=== PATIENT | female | born 1935 | race Caucasian/White ===

== ENCOUNTER → 2016-06-26 | Outpatient (CLI) | payer OTHER, MEDICARE ==
--- NOTE | 2016-06-27 13:03 | MAMMOGRAPHY REPORT ---
BILATERAL DIGITAL SCREENING MAMMOGRAM WITH CAD: 06/26/2016 CLINICAL HISTORY: Routine screening. Patient has no complaints. TECHNIQUE: Bilateral CC, MLO and left XCCL views were obtained. Current study was also evaluated wi th a Computer Aided Detection (CAD) system. COMPARISON: Comparison is made to exams dated: 06/21/2015 mammogram, 05/22/2014 mammogram, 07/09/2014 u ltrasound, 05/21/2013 mammogram, 05/20/2012 mammogram, and 05/15/2011 mammogram - [facility]. BREAST COMPOSITION: The tissue of both breasts is heterogeneously dense, which may obscure small ma sses. FINDINGS: There is a faint grouping of microcalcifications in the anterior subareolar left breast t hat is unchanged dating back to at least 06-08-2008, therefore likely benign. No suspicious mass, arc hitectural distortion or cluster of new, suspicious microcalcifications is seen. IMPRESSION: ACR BI-RADS CATEGORY 1: NEGATIVE There is no mammographic evidence of malignancy. A 1 year screening mammogram is recommended. The p atient will receive written notification of the results. Approximately 10% of breast cancers are not detected with mammography. A negative mammographic repor t should not delay biopsy if a clinically suggestive mass is present. Haydee Tam M.D. ay/:06/26/2016 15:36:08 Back Grinder: Evon SLATER(R)(M), [facility] letter sent: Normal 1/2 BI-RADS Code: ACR BI-RADS Category 1: Negative
== END | disposition home or self-care (01) ==
LOC: C.MAMM 13:18
PROVIDERS: ATTEND Obstetrics & Gynecology
DX: Z12.31 Encounter for screening mammogram for malignant neoplasm of breast (principal)

== ENCOUNTER → 2017-01-31 | Outpatient (CLI) | payer OTHER, MEDICARE ==
--- NOTE | 2017-01-31 14:13 | DIAGNOSTIC IMAGING REPORT ---
L FOOT MIN 3 VIEWS ROUTINE CLINICAL HISTORY: 81 years-old Female presenting with LEFT FOOT PAIN AND SWELLING, pain between the first and second digits. TECHNIQUE: Frontal, oblique, and lateral views the left foot were obtained. COMPARISON: 11/06/2012. FINDINGS: Osteophytosis and mild joint space loss with subchondral sclerosis noted at the first metatarsophalangeal joint, most consistent with degenerative joint disease. Bone spur noted at the inferior calcaneus.. No acute fracture or malalignment. IMPRESSION: Degenerative changes of the first metatarsophalangeal joint. No acute osseous injury. Electronically signed by: Asad Mina M.D. 01/31/2017 2:12 PM Dictated Date/Time: 01/31/2017 2:10 PM
== END | disposition home or self-care (01) ==
LOC: C.RAD 13:48
PROVIDERS: ATTEND Nurse Practitioner
DX: M79.672 Pain in left foot (principal); M79.89 Other specified soft tissue disorders

== ENCOUNTER → 2017-07-03 | Outpatient (CLI) | payer OTHER, MEDICARE ==
--- NOTE | 2017-07-04 15:56 | MAMMOGRAPHY REPORT ---
BILATERAL DIGITAL SCREENING MAMMOGRAM TOMOSYNTHESIS WITH CAD: 07/03/2017 CLINICAL HISTORY: Routine screening. Patient has no complaints. TECHNIQUE: Breast tomosynthesis in addition to standard 2D mammography was performed. Current study was also evaluated with a Computer Aided Detection (CAD) system. COMPARISON: Comparison is made to exams dated: 06/26/2016 mammogram, 06/21/2015 mammogram, 05/22/2014 m ammogram, 05/21/2013 mammogram, 05/20/2012 mammogram, and 05/15/2011 mammogram - [facility]. BREAST COMPOSITION: The tissue of both breasts is heterogeneously dense, which may obscure small mas ses. FINDINGS: The parenchymal pattern is unchanged. No developing mass, architectural distortion or clus ter of suspicious microcalcifications is seen in either breast. IMPRESSION: ACR BI-RADS CATEGORY 2: BENIGN There is no mammographic evidence of malignancy. A 1 year screening mammogram is recommended. The pa tient will receive written notification of the results. Approximately 10% of breast cancers are not detected with mammography. A negative mammographic report should not delay biopsy if a clinically suggestive mass is present. Haydee Tam M.D. ay/:07/03/2017 16:24:56 Climate Change Risk Assessor: Sonia SLATER([place])(M), [facility] letter sent: Normal 1/2 BI-RADS Code: ACR BI-RADS Category 2: Benign
== END | disposition home or self-care (01) ==
LOC: C.MAMM 12:48
PROVIDERS: ATTEND Obstetrics & Gynecology
DX: Z12.31 Encounter for screening mammogram for malignant neoplasm of breast (principal)

== ENCOUNTER → 2017-12-18 | Outpatient (CLI) | payer OTHER, MEDICARE ==
[2017-12-18 12:14] LABS: BASO % 0.1 %; BASO ABS # 0.01 K/uL (0-0.2); EOS % 0.4 %; EOS ABS # 0.05 K/uL (0-0.5); HEMATOCRIT 39.9 % (37-47); HEMOGLOBIN 13.1 g/dL (12.0-16.0); IG# 0.03 K/uL (0.00-0.02); LYMPH % 17.4 %; LYMPH ABS # 2.16 K/uL (1.2-3.4); MEAN CELL VOLUME 87.7 fL (80-100); MEAN CORPUSCULAR HEMOGLOBIN 28.8 pg (25-34); MEAN CORPUSCULAR HGB CONC 32.8 g/dl (32-36); MEAN PLATELET VOLUME 9.4 fL (7.4-10.4); MONO % 9.5 %; MONO ABS # 1.18 K/uL (0.11-0.59); NEUT % 72.4 %; NEUT ABS # 9.01 K/uL (1.4-6.5); PLATELET COUNT 239 K/uL (130-400); RED CELL DISTRIBUTION WIDTH CV 14.1 % (11.5-14.5); RED CELL DISTRIBUTION WIDTH SD 44.9 fL (36.4-46.3); WHITE BLOOD COUNT 12.44 K/uL (4.8-10.8)
--- NOTE | 2017-12-18 12:33 | DIAGNOSTIC IMAGING REPORT ---
TWO VIEW CHEST CLINICAL HISTORY: Cough. Fatigue. FINDINGS: PA and lateral chest radiographs are obtained. No prior studies are available for comparison at the time of dictation. The cardiomediastinal silhouette is unremarkable. Nonspecific interstitial thickening is likely chronic. There is patchy airspace consolidation at the left lung base with a small left pleural effusion. The appearance is concerning for pneumonia. The right lung appears clear. There is no pneumothorax. The skeletal structures are osteopenic. Degenerative change and hyperkyphosis are noted in the thoracic spine. Chronic deformity suggested in the left sided ribs. IMPRESSION: There is patchy airspace consolidation in the left lower lung and a small left pleural effusion. The appearance is concerning for pneumonia. Clinical correlation will be required and radiographic follow-up to resolution is recommended. Electronically signed by: Bala Estrada M.D. 12/18/2017 12:32 PM Dictated Date/Time: 12/18/2017 12:31 PM
[2017-12-18 12:51] LABS: ALBUMIN 3.3 gm/dl (3.4-5.0); ALKALINE PHOSPHATASE 73 U/L (45-117); ALT/SGPT 19 U/L (12-78); AST/SGOT 13 U/L (15-37); BLOOD UREA NITROGEN 12 mg/dl (7-18); CALCIUM 9.1 mg/dl (8.5-10.1); CARBON DIOXIDE 25 mmol/L (21-32); CREATININE 0.83 mg/dl (0.60-1.20); GLUCOSE 100 mg/dl (70-99); SODIUM 133 mmol/L (136-145); TOTAL PROTEIN 6.9 gm/dl (6.4-8.2)
== END | disposition home or self-care (01) ==
LOC: C.RAD 11:25
PROVIDERS: ATTEND Internal Medicine Critical Care Medicine
DX: R05 Cough (principal); R50.9 Fever, unspecified; R53.83 Other fatigue; M25.512 Pain in left shoulder

== ENCOUNTER 2019-07-17 11:20 | Inpatient (IN) ==
--- NOTE | 2019-07-17 12:21 | Emergency Department Note ---
History of Present Illness General Chief complaint: Neuro Symptoms/Deficit Stated complaint: NUMBNESS L SIDE FACE, SHOULDER DOWN TO FINGERS Time Seen by Provider: 07/17/19 11:50 Source: patient Mode of arrival: ambulatory Limitations: no limitations History of Present Illness Provider complaint: Left arm tingling Maximum Pain Intensity: 0 This patient comes in as described above. She was placed in room B5. She complains of left arm tingling which radiates into her face. This is been going on for at least a week. She said her tingling started after she had blood work drawn in that arm. She is been seen by her doctor as well she was she had an elevated white count at one point and has had a cough and fever but says a white count came back down. No fever. She has had a cough. No difficulty speaking or swallowing. No fall. No blood thinner use. No chest pain or shortness of breath or abdominal pain. No significant weakness or tingling on her left leg Home Medications Home Medications Medication Instructions Recorded Confirmed Type calcium carbonate 600 mg(1,500 1 tab PO BID 03/27/19 07/17/19 History mg)-vitamin D3 800 unit chewable tablet alendronate 70 mg PO SA 07/12/19 07/17/19 History azithromycin 250 mg PO DIRECTED 07/12/19 07/17/19 History fluticasone propionate 1 spray INTRANASAL HS 07/17/19 07/17/19 History loratadine 10 mg PO QAM 07/17/19 07/17/19 History Allergies Allergy/AdvReac Type Severity Reaction Status Date / Time aspirin Allergy Verified 07/17/19 12:25 Penicillins Allergy Verified 07/17/19 12:25 Sulfa (Sulfonamide Allergy Verified 07/17/19 12:25 Antibiotics) CLAMS Allergy Unknown Unknown Uncoded 07/17/19 12:25 SULFA,PCN,MACODANTIN,NISINTIL,ASA Allergy Unknown Unknown Uncoded 07/17/19 12:25 NITROFURANTOIN (Generic Allergy Y Uncoded 07/17/19 12:25 Allergy) Past Med/Surg History Medical History (Updated 07/17/19 @ 18:17 by Lui Sims MD) Back pain Left knee DJD Metatarsalgia Osteoporosis Right knee DJD Social History Preferred Language: Hebrew Communication Ability: Effective Orchid Transplanter Required: No Beliefs That Will Affect Care: None marital status: / Current Living Situation: Alone and Personal Care Facility current occupational status: retired Other Information That Helps Us Care for You: No Feels Safe at Home: Yes Safety Concerns: Feels Safe At This Time Smoking Status: Never smoker Do You Dip or Chew Tobacco: No ; Second Hand Exposure: No ; Tobacco Cessation Education Requested by Patient: No Hx Alcohol Use: Yes Hx Substance Use: No Review of Systems A total of 10 systems reviewed and were otherwise negative Physical Exam Vital Signs Vital Signs - 24 hr 07/17/19 11:24 07/17/19 15:06 07/17/19 15:30 Temperature 36.5 C Temperature Source Oral Pulse Rate 94 H 59 L Pulse Rate [Apical] 83 Pulse Rate from SpO2 Sensor 61 Pulse Rhythm Regular Pulse Strength Normal Respiratory Rate 16 18 17 Respiratory Effort / Characteristics Non-Labored Respiratory Depth Normal Normal Respiratory Pattern Regular Blood Pressure 144/84 H 181/120 H Blood Pressure [Left Arm] 104/65 Blood Pressure Mean 104 141 Blood Pressure Mean [Left Arm] 78 Blood Pressure Position Sitting Pulse Oximetry 97 98 99 Oxygen Delivery Method Room Air Room Air Sepsis Recent Fever Within 48 Hours No Sepsis Action Taken by Nursing No Action Required 07/17/19 15:38 07/17/19 16:00 07/17/19 16:30 Temperature Temperature Source Pulse Rate 61 63 70 Pulse Rate [Apical] Pulse Rate from SpO2 Sensor 59 L 53 L Pulse Rhythm Pulse Strength Respiratory Rate 20 24 24 Respiratory Effort / Characteristics Respiratory Depth Respiratory Pattern Blood Pressure 191/94 H Blood Pressure [Left Arm] Blood Pressure Mean 108 Blood Pressure Mean [Left Arm] Blood Pressure Position Pulse Oximetry 98 99 Oxygen Delivery Method Sepsis Recent Fever Within 48 Hours Sepsis Action Taken by Nursing 07/17/19 16:31 Temperature Temperature Source Pulse Rate 68 Pulse Rate [Apical] Pulse Rate from SpO2 Sensor Pulse Rhythm Pulse Strength Respiratory Rate 20 Respiratory Effort / Characteristics Respiratory Depth Respiratory Pattern Blood Pressure Blood Pressure [Left Arm] Blood Pressure Mean Blood Pressure Mean [Left Arm] Blood Pressure Position Pulse Oximetry Oxygen Delivery Method Sepsis Recent Fever Within 48 Hours Sepsis Action Taken by Nursing General: Well developed well nourished older female appears in no acute distress, breathing comfortably on room air. Normal speech HEENT: Normal cephalic atraumatic. Pupils are equal round and reactive to light. Extraocular movements are intact. Oropharynx is pink with moist mucous membranes. No swelling of the mouth lips or tongue. Neck: Supple with a midline trachea. No meningeal signs or stiffness, no JVD or bruits. No Stridor. Chest: Clear to auscultation bilaterally. No wheezes or rhonchi. No increased work of breathing. Heart: Regular rate and rhythm without murmurs or gallops. Abdomen: Soft nontender, nondistended without rebound guarding or rigidity. Extremities: No cyanosis clubbing or edema. No calf tenderness or assymetry Spine/Back. Non tender to palpation. No CVA tenderness Skin: Good turgor without rashes. Neurologic exam: Cranial nerves two through 12 are intact. Motor and sensation are intact and symmetrical throughout. She is complaining of numbness in her left arm however when I do sharp and dull it is intact throughout Medical Decision Making Differential Diagnosis CVA, TIA, intracranial process, electrolyte or metabolic abnormality, cardiac disease, neuropathy Medical Records Attestation: I reviewed the patient's medical records. Home Medications Current Medication List: was personally reviewed by me Laboratory Data Attestation: I reviewed the patient's lab results. Result diagrams: 07/17/19 12:14 07/17/19 12:14 Lab Results 07/17/19 07/17/19 07/17/19 Range/Units 12:14 12:14 12:14 WBC 5.11 (4.8-10.8) K/uL RBC 4.59 (4.2-5.4) M/uL Hgb 13.6 (12.0-16.0) g/dL Hct 41.0 (37-47) % MCV 89.3 (80-100) fL MCH 29.6 (25-34) pg MCHC 33.2 (32-36) g/dL RDW Std Deviation 44.8 (36.4-46.3) fL RDW Coeff of Eyal 13.6 (11.5-14.5) % Plt Count 211 (130-400) K/uL MPV 8.9 (7.4-10.4) fL Immature Gran % (Auto) 0.2 % Neut % (Auto) 39.8 % Lymph % (Auto) 45.2 % Tama % (Auto) 12.3 % Eos % (Auto) 2.3 % Baso % (Auto) 0.2 % Immature Gran # (Auto) 0.01 (0.00-0.02) K/uL Neut # (Auto) 2.03 (1.4-6.5) K/uL Lymph # (Auto) 2.31 (1.2-3.4) K/uL Tama # (Auto) 0.63 H (0.11-0.59) K/uL Eos # (Auto) 0.12 (0-0.5) K/uL Baso # (Auto) 0.01 (0-0.2) K/uL PT 10.4 (9.0-12.0) Seconds INR 1.0 (0.9-1.1) APTT 26.7 (21.0-31.0) Seconds PTT Ratio 1.0 Sodium 137 (136-145) mmol/L Potassium 3.8 (3.5-5.1) mmol/L Chloride 108 H (98-107) mmol/L Carbon Dioxide 23 (21-32) mmol/L Anion Gap 7.0 (3-11) BUN 18 (7-18) mg/dl Creatinine 0.86 (0.6-1.2) mg/dl Est Cr Clr Drug Dosing 38.9 ml/min Est GFR ( Amer) 70.9 Est GFR (Non-Af Amer) 61.2 BUN/Creatinine Ratio 20.3 H (10-20) Glucose 99 (70-99) mg/dl Calcium 9.1 (8.5-10.1) mg/dl Magnesium 2.0 (1.8-2.4) mg/dl Total Bilirubin 0.2 (0.2-1) mg/dl AST 20 (15-37) U/L ALT 21 (12-78) U/L Alkaline Phosphatase 56 (45-117) U/L Troponin I < 0.015 (0-0.045) ng/ml Total Protein 6.3 L (6.4-8.2) gm/dl Albumin 3.3 L (3.4-5.0) gm/dl Globulin 3.0 (2.5-4.0) gm/dl Albumin/Globulin Ratio 1.1 (0.9-2) Imaging Data Radiologist's Impression: Please refer to radiology reports Chest x-ray: No acute finding Head CT: No acute process there is an age-indeterminate lacunar infarct in the right thalamus ECG Data Attestation: I personally reviewed and interpreted this ECG as follows: Indication: + weakness Rate (beats per minute): 73 Rhythm: + normal sinus ECG Intervals/blocks: + Normal QT and + Normal UT ECG [place]: + Normal ECG ST segments: + Normal ST segments Comparison ECG Date: from (December,) Change: the following changes noted (Ectopy is now absent. Nonspecific ST changes now absent) Blood Pressure Blood Pressure Findings: Elevated blood pressure Blood Pressure Disposition: Referred to patients primary care provider MDM Narrative This patient comes in as scribed above she has had tingling in her left arm and face they were going on for about a week she looks well. No fall or trauma. IV access established and I did a full stroke work-up including a CAT scan of her head EKG and multiple blood testing. She was reassessed frequently. EKG was unremarkable. She has no acute electrolyte or metabolic abnormality. She has remained hemodynamically stable. She does have some tingling in her left arm face and may be the leg. I did a CAT scan of her head there is a lacunar infarct on the right which may explain her symptoms. I do think she needs a neurologic work-up in the hospital. I did not give her aspirin as she has a severe allergy to aspirin but may need other anticoagulation based on her work- up. I have consulted Dr. Montemayor the [facility] hospitalist to see her in the ER for these measures. Impression & Plan CVA (cerebrovascular accident), Numbness and tingling in left arm, Numbness and tingling of left side of face, Lacunar infarction Discharge Plan Visit Data Chief Complaint: Neuro Symptoms/Deficit Stated Complaint: NUMBNESS L SIDE FACE, SHOULDER DOWN TO FINGERS ED Provider: Lui Sims Discharge Problem: CVA (cerebrovascular accident), Numbness and tingling in left arm, Numbness and tingling of left side of face, Lacunar infarction Discharge Instructions Interventions: ED Discharge Assessment Last Done: 07/17/19 17:24 Discharge Problem: CVA (cerebrovascular accident) Qualifiers: CVA mechanism: unspecified Qualified Code(s): I63.9 - Cerebral infarction, unspecified
[2019-07-17 12:28] LABS: Basophils # (auto) 0.01 K/uL (0-0.2); Basophils % (auto) 0.2 %; Eosinophils # (auto) 0.12 K/uL (0-0.5); Eosinophils % (auto) 2.3 %; Hemoglobin 13.6 g/dL (12.0-16.0); Immature Granulocytes # (auto) 0.01 K/uL (0.00-0.02); Immature Granulocytes % (auto) 0.2 %; Lymphocytes # (auto) 2.31 K/uL (1.2-3.4); Lymphocytes % (auto) 45.2 %; Mean Corpuscular Hemoglobin 29.6 pg (25-34); Mean Corpuscular Hgb Conc 33.2 g/dL (32-36); Mean Corpuscular Volume 89.3 fL (80-100); Mean Platelet Volume 8.9 fL (7.4-10.4); Monocytes # (auto) 0.63 K/uL (0.11-0.59); Monocytes % (auto) 12.3 %; Neutrophils # (auto) 2.03 K/uL (1.4-6.5); Neutrophils % (auto) 39.8 %; Platelet Count 211 K/uL (130-400); RDW Coefficient of Variation 13.6 % (11.5-14.5); RDW Standard Deviation 44.8 fL (36.4-46.3); Red Blood Count 4.59 M/uL (4.2-5.4); White Blood Count 5.11 K/uL (4.8-10.8)
[2019-07-17 12:39] LABS: Partial Thromboplastin Time 26.7 Seconds (21.0-31.0); Prothrombin Time 10.4 Seconds (9.0-12.0)
[2019-07-17 12:44] LABS: Alanine Aminotransferase 21 U/L (12-78); Albumin Level 3.3 gm/dl (3.4-5.0); Aspartate Aminotransferase 20 U/L (15-37); BUN Creatinine Ratio 20.3 (10-20); Blood Urea Nitrogen 18 mg/dl (7-18); Calcium 9.1 mg/dl (8.5-10.1); Carbon Dioxide 23 mmol/L (21-32); Chloride 108 mmol/L (98-107); Creatinine Clr Calc Pharmacy 38.9 ml/min; Est GFR (African American) 70.9; Est GFR (Non-African American) 61.2; Glucose 99 mg/dl (70-99); Potassium 3.8 mmol/L (3.5-5.1); Sodium 137 mmol/L (136-145)
[2019-07-17 12:48] LABS: Albumin Globulin Ratio 1.1 (0.9-2); Alkaline Phosphatase 56 U/L (45-117); Bilirubin,Total 0.2 mg/dl (0.2-1); Total Protein 6.3 gm/dl (6.4-8.2); Troponin I < 0.015 ng/ml (0-0.045)
--- NOTE | 2019-07-17 13:18 | CT Scan Report ---
CT SCAN OF THE BRAIN WITHOUT IV CONTRAST CLINICAL HISTORY: Strokelike symptoms. COMPARISON STUDY: No priors. TECHNIQUE: Unenhanced axial CT scan of the brain is performed from the vertex to the skull base. A do se lowering technique was utilized adhering to the principles of ALARA. CT DOSE: 638.56 mGycm FINDINGS: Brain parenchyma: There are age-related involutional changes noting mild subcortical and periventric ular microangiopathic change. There is no hemorrhage, mass effect, or evidence of acute territorial i schemia by CT criteria. There is an age indeterminant lacunar infarct in the right thalamus. Ellis-whi te matter differentiation is preserved. No extra-axial fluid collection is seen. Mineralization is no mal in the basal ganglia. Ventricles, sulci, cisterns: Prominent secondary to involutional change. Intracranial vasculature: There is atherosclerotic calcification of the cavernous carotid arteries. Calvarium: Unremarkable. Sinuses and mastoids: There is trace mucosal thickening and fluid in the maxillary antra. Trace mucos al thickening is also seen in the frontal, ethmoid, and sphenoid sinuses. The mastoid air cells are w ell pneumatized. Orbits: The bony orbits are grossly intact. There are bilateral ocular lens implants. IMPRESSION: 1. There is no hemorrhage, mass effect, or evidence of acute territorial ischemia by CT criteria. 2. There is an age indeterminant lacunar infarct identified in the right thalamus. ACT 112: Negative or not required by law. Electronically signed by: Bala Estrada M.D. 07/17/2019 1:16 PM
--- NOTE | 2019-07-17 14:29 | Electrocardiogram Report ---
Test Reason : Blood Pressure : / mmHG Vent. Rate : 073 BPM Atrial Rate : 073 BPM P-R Int : 128 ms QRS Dur : 088 ms QT Int : 370 ms P-R-T Axes : 014 003 024 degrees QTc Int : 407 ms Normal sinus rhythm Normal ECG When compared with ECG of 18-DEC-2017 12:25, Premature supraventricular complexes are no longer Present Confirmed by Rj Uribe ([id number]) on 07/17/2019 2:28:39 PM Referred By: Confirmed By:Rj Uribe
--- NOTE | 2019-07-17 16:47 | History & Physical Report ---
Date of Service July 17, 2019 Assessment & Plan (1) CVA (cerebrovascular accident): Subacute lacunar infarct Noted on CT scan: documented age indeterminant, however, likely subacute given her symptoms. WILL CONFIRM WITH MRI. Given her symptoms, patient is out of the window. Will place patient on Plavix as she is allergic to Aspirin. Will admit to Med/ Surg Tele Patient will be on permissive hypertension until MRI is back to confirm no acute stroke. Goal at the moment would be below 220/120 as patient did not receive tPA. Given that patient does not have significant comorbidities, will hold BP medication at this time. will consult neuro. Placed on atorvastatin. DVT: patient will be ambulating. will place on lovenox in AM. History of Present Illness Chief Complaint: numbness Primary Care Provider: Asad Lynch MD 84 yo female reports having left sided numbness which began last . (07/11/19) Patient reports numbness in her left elbow and this would radite to her left hand. She reports this continues up to Sunday, where she was seen by the ER. Given her distribution of her symptoms, it was determined to be a neuropathy and did not appear to be a stroke. Her symptoms continued and gradually worsened over the course of the next few days. Patient reported having numbness in the corner of her left face and numbness on her left foot. She informed her daughter and her PCP and determined it was best that she go back to the ER. Patient denies any vision changes, weakness, nausea, vomiting. Once she arrived in the ED, she had aCT scan which showed a possible subacute thalamic stroke on the right side. Patient was recently treated for an upper respiratory infection. She completed her treatment. Allergies Allergy/AdvReac Type Severity Reaction Status Date / Time aspirin Allergy Unknown Unknown Verified 07/18/19 08:49 Penicillins Allergy Unknown Unknown Verified 07/18/19 08:49 Sulfa (Sulfonamide Allergy Unknown Unresponsiv Verified 07/18/19 08:49 Antibiotics) e CLAMS Allergy Unknown Unknown Uncoded 07/17/19 12:25 NITROFURANTOIN (Generic Allergy Y Uncoded 07/17/19 12:25 Allergy) Home Medications Home Medications Medication Instructions Recorded Confirmed Type calcium carbonate 600 mg(1,500 1 tab PO BID 03/27/19 07/17/19 History mg)-vitamin D3 800 unit chewable tablet alendronate 70 mg PO SA 07/12/19 07/17/19 History azithromycin 250 mg PO DIRECTED 07/12/19 07/17/19 History fluticasone propionate 1 spray INTRANASAL HS 07/17/19 07/17/19 History loratadine 10 mg PO QAM 07/17/19 07/17/19 History Past Med/Surg History Medical History Back pain Left knee DJD Metatarsalgia Osteoporosis Right knee DJD Surgical History No significant past surgical history Family History (Updated 07/18/19 @ 08:35 by Eliot Simons) Mother Hypertension Social History Preferred Language: Kyrgyz Communication Ability: Effective Delinquent Tax Collector Required: No Beliefs That Will Affect Care: None marital status: / Current Living Situation: Alone and Personal Care Facility current occupational status: retired Other Information That Helps Us Care for You: No Feels Safe at Home: Yes Safety Concerns: Feels Safe At This Time Smoking Status: Never smoker Do You Dip or Chew Tobacco: No ; Second Hand Exposure: No ; Tobacco Cessation Education Requested by Patient: No Hx Alcohol Use: Yes Hx Substance Use: No Review of Systems Constitutional: no sweats and no malaise Eyes: no diplopia and no discharge Ear, Nose, Mouth, Throat: no ear pain, no ear trauma, no tinnitus and no dizziness Respiratory: no cough and no change in sputum Cardiovascular: no chest pain and no radiating jaw, neck or arm pain Gastrointestinal: no abdominal pain and no early satiety Genitourinary: no dysuria and no urinary hesitancy Musculoskeletal: no back pain and no radicular pain Integumentary: no rash and no non-healing lesions Neurologic: no gait abnormality and no falls Psychiatric: no behavioral changes and no anhedonia Endocrine: no fatigue Hematologic / Lymphatic: no coagulopathy Allergy / Immunological: no lip swelling Physical Exam Constitutional: well developed and well nourished Eyes: PERRL, conjunctivae normal, anicteric sclerae ENMT: external ear and nose normal, oropharynx normal Neck: trachea midline, no thyromegaly Respiratory: normal respiratory effort, lungs clear to auscultation Cardiovascular: RRR, no murmur, no edema Gastrointestinal (Abdomen): normal bowel sounds, soft, nontender, no hepatosplenomegaly Musculoskeletal: no cyanosis or clubbing, extremities motor strength 5/5 Neurologic: PERRL, EOMI, accommodation nl, no face palsy, no dysarthria (normal strength bilaterally.) normal touch/pain/proprioception (except for presthesias on her left arms and left foot.) and CN's II-XI intact bilaterally (except for decreased sensation on her left lower quadrant of her face.) Results & Data Vital Signs (Past 12 Hours) Vital Signs Temp Pulse Pulse Resp BP BP Pulse Ox 07/17/19 15:38 61 20 98 07/17/19 15:30 59 L 17 181/120 H 99 07/17/19 15:06 83 18 104/65 98 07/17/19 11:24 36.5 C 94 H 16 144/84 H 97 PG Care Time/CCT Total # of Minutes Spent Total Time Spent with Patient: Total time spent is greater than 50% in coordin ation of care (as documented) at patient's floor/unit and/or counseling patient: Coding Level of Care Code 32245 Initial Inpt Care Lvl 3 Diagnoses CVA (cerebrovascular accident) I63.9 CVA mechanism: unspecified Time Spent (min) 55 (1) CVA (cerebrovascular accident) CVA mechanism: unspecified Qualified Code(s): I63.9 - Cerebral infarction, unspecified
[2019-07-17] MEDS ORDERED: PHARMACIST DISCHARGE MED REC CONSULT PRN (18:10)
--- NOTE | 2019-07-17 22:31 | Magnetic Resonance Report ---
MR brain wo con HISTORY: Mental status change stroke TECHNIQUE: Multiplanar multisequence MRI of the brain was performed without the use of contrast. COMPARISON STUDY: CT 07/17/2019 FINDINGS: Very small acute right anterior thalamic infarct. This has some subacute characteristics. Signal characteristics on diffusion images show no additional acute ischemic focus. The remainder the study shows moderate age-related chronic small vessel change and atrophy. The ventr icular system is midline. IMPRESSION: 1. Very small acute/subacute anterior right thalamic infarct. 2. Mild age-related chronic small vessel change and atrophy. ACT 112: Negative or not required by law. The above report was generated using voice recognition software. It may contain grammatical, syntax or spelling errors. Electronically signed by: Luis Angel Camacho M.D. 07/17/2019 10:30 PM
[2019-07-17] MEDS: ATORVASTATIN 40 MG TAB PO SCH (22:32)
[2019-07-18 06:24] LABS: Estimated Average Glucose 140 mg/dl; Hemoglobin A1C 6.5 % (4.5-5.6)
[2019-07-18 07:12] LABS: Basophils # (auto) 0.02 K/uL (0-0.2); Basophils % (auto) 0.2 %; Eosinophils # (auto) 0.12 K/uL (0-0.5); Eosinophils % (auto) 1.4 %; Hematocrit (blood only) 39.1 % (37-47); Hemoglobin 12.6 g/dL (12.0-16.0); Immature Granulocytes # (auto) 0.02 K/uL (0.00-0.02); Immature Granulocytes % (auto) 0.2 %; Lymphocytes # (auto) 2.62 K/uL (1.2-3.4); Lymphocytes % (auto) 31.2 %; Mean Corpuscular Hgb Conc 32.2 g/dL (32-36); Mean Corpuscular Volume 89.9 fL (80-100); Mean Platelet Volume 8.8 fL (7.4-10.4); Monocytes # (auto) 0.72 K/uL (0.11-0.59); Monocytes % (auto) 8.6 %; Neutrophils # (auto) 4.91 K/uL (1.4-6.5); Neutrophils % (auto) 58.4 %; Platelet Count 203 K/uL (130-400); RDW Coefficient of Variation 13.5 % (11.5-14.5); RDW Standard Deviation 45.2 fL (36.4-46.3); Red Blood Count 4.35 M/uL (4.2-5.4); White Blood Count 8.41 K/uL (4.8-10.8)
[2019-07-18 07:48] LABS: BUN Creatinine Ratio 17.9 (10-20); Calcium 8.2 mg/dl (8.5-10.1); Est GFR (African American) 65.3; Est GFR (Non-African American) 56.4; Potassium 4.2 mmol/L (3.5-5.1)
[2019-07-18] MEDS ORDERED: CLOPIDOGREL BISULFATE 75 MG TAB PO SCH (09:00)
[2019-07-18] MEDS ORDERED: ENOXAPARIN INJ 40 MG/0.4 ML SYR SQ SCH (09:00)
[2019-07-18] MEDS ORDERED: OPTIRAY 320 125ml IV PRN (10:21)
--- NOTE | 2019-07-18 10:44 | CT Scan Report ---
CT angio neck with con CLINICAL HISTORY: 84 years-old Female presenting with stroke. TECHNIQUE: Multidetector CT angiography of the neck was performed after the administration of intrave nous contrast. 3-D volumetric and/or maximum intensity projection (MIP) images were subsequently vanessa nstructed for review. IV contrast: 120 mL of Optiray 320. One or more dose lowering techniques were u sed consistent with the principles of ALARA (as low as reasonably achievable), including automatic ex posure control, mA or kV adjustment to individual patient size, and/or use of iterative reconstructio n. Stenosis measurements were based on NASCET-like criteria (distal lumen diameter as the denominator for stenosis measurement). COMPARISON: None. CT DOSE (mGy.cm): The estimated cumulative dose is 1072.20. 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 Aortic arch: Atherosclerosis of the three-vessel aortic arch with patent origins of the branch vessel s. Innominate artery: Patent. Right subclavian artery: Patent. Right common carotid artery: Patent. Right internal and external carotid arteries: Right carotid bifurcation patent. Right internal and ex ternal carotid arteries widely patent. Left common carotid artery: Patent. Left internal and external carotid arteries: Left carotid bifurcation patent. Left internal and exter nal carotid arteries widely patent. Left subclavian artery: Patent. Vertebral arteries: Codominant vertebral arteries. Origins and courses of the bilateral vertebral art eries patent. Other: Limited intracranial evaluation within normal limits. Multiple nodules in the thyroid measurin g up to 19 mm in the right lobe. Degenerative changes of the cervical spine. Bronchial wall thickenin g may be present. Lung apices are otherwise clear. IMPRESSION: 1. No evidence of dissection, focal vessel occlusion, or significant stenosis of the cervical arteri es. ACT 112: Negative or not required by law. Electronically signed by: Asad Mina M.D. 07/18/2019 10:43 AM
--- NOTE | 2019-07-18 10:54 | CT Scan Report ---
CT angio head w con CLINICAL HISTORY: 84 years-old Female with stroke. Acute stroke like symptoms COMPARISON STUDY: CTA head same day, brain MRI 07/17/2019 TECHNIQUE: Following the IV administration of 120 cc of Optiray 320, CT angiogram of the brain was pe rformed from the skull base to the vertex. Images are reviewed in the axial, sagittal, and coronal pl anes. 3-D MIPS images are created and assessed. IV contrast was administered without complication. Al l measurements were obtained according to NASCET criteria. A dose lowering technique was utilized adh ering to the principles of ALARA. CT DOSE: 1072.20 mGy.cm FINDINGS: CT ANGIOGRAM OF THE BRAIN: There is mild multifocal luminal narrowing of the clinoid and supraclinoid segments right internal ca rotid artery. No high-grade stenosis of the imaged internal carotid arteries bilaterally. The bilater al middle cerebral arteries appear normal. The right A1 segment is not visualized and is likely devel opmentally absent/diminutive. Saccular aneurysm of the anterior circulation appears to arise at the o rigin of the left A2 segment/anterior communicating artery and measures 4.5 x 4.0 x 5.4 mm nicely see n on image 8 of series 5. No evidence of aneurysm thrombosis or rupture. The imaged distal vertebral arteries appear patent. Patent basilar artery. origin of the right posterior cerebral artery. The bilateral posterior cerebral arteries are patent. Cerebral venous sinu ses are also patent. No dissection, high-grade stenosis or proximal branch occlusion. There is no abnormal intracranial enhancement. No acute calvarial fracture. Mucosal thickening of the paranasal sinuses. IMPRESSION: 1. 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 No evidence of aneurysm rupture. 2. No dissection, high-grade stenosis or proximal branch occlusion. ACT 112: Negative or not required by law. The above report was generated using voice recognition software. It may contain grammatical, syntax o r spelling errors. Electronically signed by: Juancarlos Garland M.D. 07/18/2019 10:52 AM
--- NOTE | 2019-07-18 12:32 | XCELERA ---
[id number] \\[email or web address]\[id number]_[email or web address]\[id number]
--- NOTE | 2019-07-18 15:58 | Neurology Consultation ---
Date of Consultation July 18, 2019 Assessment & Plan (1) Right thalamic stroke: Chayo Madrid is an 84 yo woman w/ PMH of arthritis who p/t [facility] after subacute onset of left face/arm numbness. Symptom localization: right thalamus Stroke mechanism: cardioembolic vs lacunar/lipohyalinosis Stroke WorkUp: - CT head: right thalamic hypodensity - CTA head/neck: no LVO or high grade stenosis, L A2 aneurysm - MRI brain: subacute infarct in R thalamus, mild generalized atrophy, minimal SVID - TTE: EF 60 to 65%, grade 1 diastolic dysfunction, left atrium moderately dilated, mild aortic valve sclerosis without stenosis, mild AR - Telemetry: NSR - A1c: 6.5 - FLP: 60 - Troponin: negative Stroke Management: - Acute treatment: ASA - Continuous cardiac monitoring, 30 day event monitor on d/c - Vitals, Neurochecks, NIHSS per unit routine - BP parameters: SBP CAP 180, goal normotension - Consult speech, PT, OT for supportive management - Will senior counsel concerning stroke education, smoking cessation, healthy diet, physical activity, weight loss - Follow up with PCP for assistance with outpatient goals (BP <135/85, LDL <70, A1c <7) - Follow up in neurology clinic in 2-3 months - should have neurosurgery appointment as an outpatient in the next 2-3 months to discuss incidental aneurysm Secondary Stroke Prevention: - Antiplatelet: plavix 75mg daily - Anticoagulation: Not indicated at this time - Statin: Atorvastatin 40mg daily HTN: - BP parameters, as above Glucose Control: - Sliding scale insulin and accuchecks per primary team to avoid hyperglycemia Thank you for this interesting consult. Plan of care was discussed with primary team. Please call with any questions. (2) Hypertension: History of Present Illness Attending Physician: Eliot Simons History of Present Illness Chayo Madrid is an 84 yo woman w/ PMH of arthritis who p/t [facility] after subacute onset of left face/arm numbness. [facility] on 07/12/19. She reports that she has had several pneumonias and 3 courses of antibiotics since April 2019, otherwise has been in her normal state of health. Does not have a history of diabetes, hypertension, hyperlipidemia or A. fib. She is a non-smoker. Reports that she had her annual exam last Sunday and was supposed t o get a chest x-ray for ongoing cough, as well as blood draw. She had gone to an outside ED, where she reports that they attributed her left forearm numbness to the tourniquet with the blood draw and she was discharged home. She noticed that numbness was slowly progressing over the course of the week, prompting her to present to the hospital yesterday. In the ED, patient was afebrile, BP 144/84, heart rate 94, respiratory rate 16, satting 97% on room air. Labs notable for WBC 5.1, hemoglobin 13.6, platelets 211, creatinine 0.6, glucose 99, INR 1.0, LFTs within normal, troponin negative. She had a chest x-ray that showed no acute finding. EKG showed normal sinus rhythm. Independent review of CT head shows a hypodensity in the right thalamus. Independent review of MRI brain shows a subacute infarct in the right thalamus, mild generalized atrophy, minimal small vessel ischemic disease. CTA of the head and neck did not show LVO or high-grade stenosis but was notable for a 4.5 x 4 x 5.4 mm aneurysm in the left A2 segment abutting the ACOM. She was admitted for stroke work-up. NIHSS 1. Allergies Allergy/AdvReac Type Severity Reaction Status Date / Time aspirin Allergy Unknown Unknown Verified 07/18/19 08:49 Penicillins Allergy Unknown Unknown Verified 07/18/19 08:49 Sulfa (Sulfonamide Allergy Unknown Unresponsiv Verified 07/18/19 08:49 Antibiotics) e CLAMS Allergy Unknown Unknown Uncoded 07/17/19 12:25 NITROFURANTOIN (Generic Allergy Y Uncoded 07/17/19 12:25 Allergy) Home Medications Home Medications Medication Instructions Recorded Confirmed Type calcium carbonate 600 mg(1,500 1 tab PO BID 03/27/19 07/17/19 History mg)-vitamin D3 800 unit chewable tablet alendronate 70 mg PO SA 07/12/19 07/17/19 History azithromycin 250 mg PO DIRECTED 07/12/19 07/17/19 History fluticasone propionate 1 spray INTRANASAL HS 07/17/19 07/17/19 History loratadine 10 mg PO QAM 07/17/19 07/17/19 History atorvastatin 40 mg PO QPM #30 tab 07/18/19 Rx clopidogrel 75 mg PO QAM #30 tab 07/18/19 Rx Patient History Medical History Back pain Left knee DJD Metatarsalgia Osteoporosis Right knee DJD Surgical History No significant past surgical history Family History (Updated 07/18/19 @ 08:35 by Eliot Simons) Mother Hypertension Social History Preferred Language: Bulgarian Communication Ability: Effective Assistant Engineer Required: No Beliefs That Will Affect Care: None marital status: / Current Living Situation: Alone and Personal Care Facility current occupational status: retired Other Information That Helps Us Care for You: No Feels Safe at Home: Yes Safety Concerns: Feels Safe At This Time Smoking Status: Never smoker Do You Dip or Chew Tobacco: No ; Second Hand Exposure: No ; Tobacco Cessation Education Requested by Patient: No Hx Alcohol Use: Yes Hx Substance Use: No Review of Systems Review of Systems: 14 point review of systems completed and negative except as in HPI. Physical Exam Physical Exam: General Exam: GEN: NAD, sitting down in examination bed. HEENT: No conjunctival injection, no rhinorrhea. CV: RRR on monitor, no significant edema. PULM: Nonlabored respirations on room air, frequent cough. Neuro Exam: MS: Awake and Alert. Oriented to person, place, and date. Speech fluent and appropriate without dysarthria or paraphasic errors. Language intact including naming, comprehension, repetition. Cognition and memory grossly intact. Attention intact. No neglect. CN: Visual giron full, + blink to threat bilaterally. No extinction to double simultaneous stimuli. Normal fundoscopic exam. PERRLA OU. EOMI without nystagmus. Facial sensation intact to LT. Facial muscles full and symmetric. Hearing intact to finger rub bilaterally. Uvula midline with symmetric palatal elevation. SCMs and shoulder shrug normal. Tongue midline. MOTOR: Normal bulk and tone. No pronator drift. BUE strength 5/5 at deltoids, biceps, triceps, wrist flexors and extensors, and finger flexors bilaterally. BLE strength 5/5 at iliopsoas, hamstrings, quadriceps, tibialis anterior, and gastrocnemius bilaterally. REFLEXES: 2+ at biceps, triceps, brachioradialis, 1+ patella, and absent Achilles bilaterally. Flexor plantar responses bilaterally. SENSORY: Intact to LT throughout, no extinction to double simultaneous stimuli. Intact to vibration and temperature throughout. Reports mildly decreased sensation in the left V2/V3 and distal left upper extremity COORDINATION: No dysmetria or ataxia on [id number] bilaterally. Normal Kevin bilaterally. GAIT: Normal gait and armswing. Normal Romberg. NIH STROKE SCALE 1A. Level of Consciousness (0-3) = 0 1B. LOC Questions (0-2) = 0 1C. LOC Commands (0-2) = 0 2. Best Horizontal Gaze (0-2) = 0 3. Visual Giron (0-3) = 0 4. Facial Palsy (0-3) = 0 5. Motor Arm Right (0-4) = 0 Left (0-4) = 0 6. Motor Leg Right (0-4) = 0 Left (0-4) = 0 7. Limb Ataxia (0-2) = 0 8. Sensory (0-2) = 1 9. Best Language (0-3) = 0 10. Dysarthria (0-2) = 0 11. Extinction and Inattention (0-2) = 0 NIHSS TOTAL = 1 Results & Data Vital Signs (Past 12 Hours) Vital Signs Temp Pulse Pulse Resp BP Pulse Ox 07/18/19 15:15 36.5 C 69 18 136/73 95 07/18/19 07:35 36.5 C 69 18 126/72 94 07/18/19 07:31 61 PG Care Time/CCT Total # of Minutes Spent Total Time Spent with Patient: Total time spent is greater than 50% in coordination of care (as documented) at patient's floor/unit and/or counseling patient: Coding Level of Care Code 35244 Initial Inpt Care Lvl 3 Diagnoses Right thalamic stroke I63.9 Hypertension I10
[2019-07-18] MEDS ORDERED: STROKE PATIENT DISCHARGE STA (16:35)
--- NOTE | 2019-07-18 17:20 | Pharmacy Report ---
Pharmacist Stroke Counseling - Date of Service July 18, 2019 - Scope: Pharmacy has been consulted to provide medication discharge counseling for this patient admitted with ischemic stroke as per the Pharmacist Discharge Counseling for Stroke Patients Protocol. - Medications on Discharge: Home Medications Medication Instructions Recorded Confirmed calcium carbonate 600 mg(1,500 1 tab PO BID 03/27/19 07/17/19 mg)-vitamin D3 800 unit chewable tablet alendronate 70 mg PO SA 07/12/19 07/17/19 fluticasone propionate 1 spray INTRANASAL HS 07/17/19 07/17/19 loratadine 10 mg PO QAM 07/17/19 07/17/19 New Rx's Medication Instructions Recorded atorvastatin 40 mg PO QPM #30 tab 07/18/19 clopidogrel 75 mg PO QAM #30 tab 07/18/19 - Action: The above medications, specifically ones for stroke treatment/prophylaxis, have been reviewed in detail with the patient and/or patient sales representative business courses(s) prior to discharge. This includes indication, common adverse reactions, drug interactions, and medication administration. Medication counseling has been employed using the teach-back method to ensure understanding. - Outcome: The patient has demonstrated understanding of the medications. Please note, they are aware that the pharmacist will call them within 72 hours post-discharge to confirm that the appropriate medications are being taken and answer any further medication related questions the patient might have at that time. Contact information Individual to be contacted: Patient Phone number: [phone] Best time to call: Anytime Additional comments: - Patient verbalized understanding of all discussed details - Patient to receive Lipitor dose prior to discharge this evening - Medications e-scribed to [facility] Thank you for allowing pharmacy to be involved in the care of this patient. Please call [phone] or [phone] with any additional questions
[2019-07-18] MEDS: ATORVASTATIN 40 MG TAB PO SCH (17:41)
--- NOTE | 2019-07-21 13:51 | Pharmacy Report ---
Pharmacist Post D/C Phone Note - Phone Note: Date of phone call: July 21, 2019. 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 Discharge counseling pharmacist contact information has already been provided to the patient should questions arise. Thank you for allowing us to be involved in the care of this patient. - Home Medications: Home Medications Medication Instructions Recorded Confirmed calcium carbonate 600 mg(1,500 1 tab PO BID 03/27/19 07/17/19 mg)-vitamin D3 800 unit chewable tablet alendronate 70 mg PO SA 07/12/19 07/17/19 fluticasone propionate 1 spray INTRANASAL HS 07/17/19 07/17/19 loratadine 10 mg PO QAM 07/17/19 07/17/19 New Rx's Medication Instructions Recorded atorvastatin 40 mg PO QPM #30 tab 07/18/19 clopidogrel 75 mg PO QAM #30 tab 07/18/19
--- NOTE | 2019-07-23 23:42 | Discharge Summary ---
Date of Service July 18, 2019 Admission HPI Per Admitting Provider 84 yo female reports having left sided numbness which began last . (07/11/19) Patient reports numbness in her left elbow and this would radite to her left hand. She reports this continues up to Sunday, where she was seen by the ER. Given her distribution of her symptoms, it was determined to be a neuropathy and did not appear to be a stroke. Her symptoms continued and gradually worsened over the course of the next few days. Patient reported having numbness in the corner of her left face and numbness on her left foot. She informed her daughter and her PCP and determined it was best that she go back to the ER. Patient denies any vision changes, weakness, nausea, vomiting. Once she arrived in the ED, she had aCT scan which showed a possible subacute thalamic stroke on the right side. Patient was recently treated for an upper respiratory infection. She completed her treatment. Principal Diagnosis Subacute thalamic ischemic stroke Discharge Exam Constitutional well developed and well nourished Eyes PERRL, conjunctivae normal, anicteric sclerae ENMT external ear and nose normal, oropharynx normal Neck trachea midline, no thyromegaly Respiratory normal respiratory effort, lungs clear to auscultation Cardiovascular RRR, no murmur, no edema Gastrointestinal (Abdomen) normal bowel sounds, soft, nontender, no hepatosplenomegaly Musculoskeletal no cyanosis or clubbing, extremities motor strength 5/5 Neurologic PERRL, EOMI, accommodation nl, no face palsy, no dysarthria (normal strength bilaterally.) normal touch/pain/proprioception (except for presthesias on her left arms and left foot.) and CN's II-XI intact bilaterally (except for decreased sensation on her left lower quadrant of her face.) Discharge Data Allergies Allergy/AdvReac Type Severity Reaction Status Date / Time aspirin Allergy Unknown Unknown Verified 07/18/19 08:49 Penicillins Allergy Unknown Unknown Verified 07/18/19 08:49 Sulfa (Sulfonamide Allergy Unknown Unresponsiv Verified 07/18/19 08:49 Antibiotics) e CLAMS Allergy Unknown Unknown Uncoded 07/17/19 12:25 NITROFURANTOIN (Generic Allergy Y Uncoded 07/17/19 12:25 Allergy) Consultations 07/17/19 15:00 ED Decision to Admit Stat 07/17/19 15:15 ED Decision to Admit Stat 07/17/19 18:10 Consult Case Management - Discharge Planning Routine Consult Neurology Routine 07/18/19 16:54 Consult JAYROG hand candle dipper Routine Ordered Studies 07/17/19 12:06 CT head/brain wo con Stat 07/17/19 18:10 MR brain wo con Routine 07/18/19 08:52 CT angio head w con Routine 07/18/19 10:20 CT angio neck with con Routine Hospital Course (1) CVA (cerebrovascular accident): Subacute lacunar infarct of right thalamus Noted on CT scan: documented age indeterminant, however, likely subacute given her symptoms. WILL CONFIRM WITH MRI. Given her symptoms, patient is out of the window. Placed on Plavix as she is allergic to Aspirin. Admitted to Med/ Surg Tele Patient will be on permissive hypertension until MRI is back to confirm no acute stroke. MRI came back and confirmed the stroke was subacute. Goal at that moment (of admission) would be below 220/120 as patient did not receive tPA. Given that patient does not have significant comorbidities, will hold BP medicat ion at this time. will consult neuro. Placed on atorvastatin. On day 2 of [facility] stay, patient was seen by Neuro: Appreciate input. - Follow up with PCP for assistance with outpatient goals (BP <135/85, LDL <70, A1c <7) - Follow up in neurology clinic in 2-3 months - should have neurosurgery appointment as an outpatient in the next 2-3 months to discuss incidental aneurysm Secondary Stroke Prevention: - Antiplatelet: plavix 75mg daily - Anticoagulation: Not indicated at this time - Statin: Atorvastatin 40mg daily Total Time Total Time Spent Total Time Spent (In Minutes): 35 Total Time Includes: Examination of the Patient, Discharge Planning and Medica tion Reconciliation Discharge Plan Discharge Items Patient Disposition: Home - Self-Care Reason For Visit: STROKE Discharge Diagnosis: Stroke Activity: Resume your previous activity Non-emergency contact: Primary Care Provider Call non-emergency contact if: you have any medication questions Follow-up/Referrals: Asad Lynch MD [Primary Care Provider] - Diet: Regular Addtl Attending Provider Instructions: Risk Factors for Stroke: You can reduce your chances of stroke by working with your medical provider to adopt a healthy lifestyle. Some specific ways to lower your chance of stroke are: * If you are a smoker, now is the time to stop smoking cigarettes * If you are diabetic, improve the control of your blood sugars * Avoid excessive amounts of alcohol * Control high blood pressure * Lose weight if you are overweight * Be sure to lead an active lifestyle * Eat a healthy diet low in salt, cholesterol and fat You should know about other risk factors for stroke that you are unable to control. These include: * Age 55 years or older * Male gender * Certain racial groups: , or / * Family History of Stroke, Mini stroke or Heart Attack * Sickle Cell Disease Follow Up: It is important for you to keep your follow up appointments with your medical provider. Who to Call and When: Medical Emergencies: Call 911 immediately if you experience any of the following warning signs and symptoms of Stroke: * Sudden numbness or weakness of the face, arm or leg, especially on one side of the body * Sudden confusion, trouble speaking or understanding * Sudden trouble seeing in one or both eyes * Sudden trouble walking, dizziness, loss of balance or coordination * Sudden severe headache with no cause Do not delay calling 911 if you experience any warning signs or symptoms of a stroke. Delay in seeking medical attention may affect what treatments can be given to you. . Pending Studies at Discharge: No Stand-Alone Forms: Medications to Prevent Stroke, [facility] [employer], Smoking Cessation Medications and DC Order Prescriptions: New atorvastatin 40 mg Tablet 40 mg PO QPM Qty: 30 RF: 0 clopidogrel 75 mg Tablet 75 mg PO QAM Qty: 30 RF: 0 Continued Caltrate 600 plus D 600 mg (1,500 mg)-800 unit tablet,chewable 1 tab PO BID RF: 0 fluticasone propionate 50 mcg/actuation spray,suspension 1 spray INTRANASAL HS RF: 0 loratadine 10 mg Tablet 10 mg PO QAM RF: 0 alendronate 70 mg tablet 70 mg PO SA RF: 0 Discontinued azithromycin 250 mg tablet 250 mg PO DIRECTED RF: 0 Discharge Orders: Discharge Order (Routine); Ordered 07/18/19 Ordered By: Eliot Camarena/Other Patient Handouts: A1C Admission Data Admit Date/Time: 07/17/19 16:56 Attending Provider: Eliot Simons Admit Provider: Eliot Simons Primary Care Provider: Asad Lynch Other Providers: Bridgett Zheng Other Interventions: Discharge Summary Assessment (RN) Last Done: 07/18/19 17:08 DC Date/Time DO NOT enter until pt leaves facility: 07/18/19 18:30 Coding Level of Care Code D/C Day Management >30 mins Diagnoses CVA (cerebrovascular accident) I63.9 CVA mechanism: unspecified Time Spent (min) 35
== END 2019-07-18 18:30 | disposition home or self-care (01) | DRG 66 ==
LOC: ED 11:20 → 2N 16:56

== ENCOUNTER 2021-12-29 09:13 | Observation (INO) ==
[2021-12-29 09:50] LABS: Basophils # (auto) 0.01 K/uL (0-0.2); Basophils % (auto) 0.1 %; Eosinophils # (auto) 0.17 K/uL (0-0.50); Eosinophils % (auto) 1.2 %; Hematocrit (blood only) 37.7 % (34.1-44.9); Hemoglobin 12.4 g/dl (12.0-16.0); Immature Granulocytes # (auto) 0.05 K/uL (0.00-0.02); Immature Granulocytes % (auto) 0.4 %; Lymphocytes # (auto) 2.12 K/uL (1.2-3.4); Lymphocytes % (auto) 15.2 %; Mean Corpuscular Hgb Conc 32.9 g/dL (32.0-36.0); Mean Corpuscular Volume 88.3 fL (80.0-100.0); Mean Platelet Volume 9.6 fL (9.4-12.3); Monocytes # (auto) 0.96 K/uL (0.24-0.82); Monocytes % (auto) 6.9 %; Neutrophils # (auto) 10.61 K/uL (1.4-6.5); Neutrophils % (auto) 76.2 %; Platelet Count 231 K/uL (130-400); RDW Coefficient of Variation 14.2 % (11.5-14.5); RDW Standard Deviation 45.9 fL (36.4-46.3); Red Blood Count 4.27 M/uL (3.93-5.22); White Blood Count 13.92 K/ul (4.8-10.8)
[2021-12-29 10:17] LABS: Albumin Globulin Ratio 1.7 (0.9-2); BUN Creatinine Ratio 15.9 (10-20); Calcium 9.1 mg/dl (8.5-10.1); Creatinine Clr Calc Pharmacy 39.2 ml/min; Est GFR (Non-African American) 63.9 ml/min; Globulin 2.4 gm/dl (2.5-4.0); Potassium 4.1 mmol/L (3.5-5.1); Total Protein 6.4 gm/dl (6.0-8.3)
--- NOTE | 2021-12-29 11:09 | Emergency Department Note ---
History of Present Illness General Chief complaint: Abdominal Pain Stated complaint: ABD PAIN Time Seen by Provider: 12/29/21 09:40 Source: patient Mode of arrival: ambulatory Limitations: no limitations History of Present Illness Provider complaint: Abdominal pain Maximum Pain Intensity: 8 This is an 86-year-old female presents emergency department with concern for abdominal pain. Patient states patient she first began noticing pain yesterday states it was centrally located and in her lower abdomen. She states the pain is otherwise nonradiating. She states pain is similar to prior episode of diverticulitis in which she was transferred to [place] and did receive IV antibiotics. Denies any recent fevers, chills, nausea, or vomiting. She states pain is worse with movement. No treatment prior to arrival. She states she has previously undergone colonoscopy was reported to her as normal. No history of PUD, IBS, or IBD. Prior appendectomy. Patient states she was previously t ransferred to [facility] for diverticulitis last year with anticipation of possible surgery and she never required surgery. She states she was given antibiotics and sent home. Pt seen during a time of high acuity and national emergency pandemic while wearing PPE. Home Medications Medication Instructions Recorded Confirmed Type calcium carbonate 600 mg-vitamin 1 tab PO BID 03/27/19 12/29/21 History D3 20 mcg (800 unit) chewable tablet (Caltrate 600 plus D) loratadine 10 mg tablet 10 mg PO QAM 07/17/19 12/29/21 History atorvastatin 40 mg tablet 40 mg PO QPM #30 tabs 07/18/19 12/29/21 Rx apixaban 5 mg tablet (Eliquis) 5 mg PO BID 10/16/19 12/29/21 History fluticasone propionate 50 1 sprays intranasal DAILY 10/16/19 12/29/21 History mcg/actuation nasal spray,suspension (Allergy Relief (fluticasone)) alendronate 70 mg tablet 70 mg PO WK 11/22/20 12/29/21 History clotrimazole-betamethasone 1 1 applic topical DIRECTED PRN 11/22/20 12/29/21 History %-0.05 % topical cream lichen sclerosis famotidine 20 mg tablet 20 mg PO BID PRN Acid Reflux 11/22/20 12/29/21 History Symptoms ciprofloxacin HCl 500 mg tablet 500 mg PO Q12H 13 days #26 tabs 12/30/21 Rx (Cipro) metronidazole 500 mg tablet 500 mg PO Q8H 13 days #39 tabs 12/30/21 Rx Allergies Allergy/AdvReac Type Severity Reaction Status Date / Time aspirin Allergy Unknown Unknown Verified 12/29/21 11:23 cefadroxil [From Duricef] Allergy Unknown Verified 12/29/21 11:23 erythromycin base Allergy Unknown Verified 12/29/21 11:23 Penicillins Allergy Unknown Unknown Verified 12/29/21 11:23 Sulfa (Sulfonamide Allergy Unknown Unresponsiv Verified 12/29/21 11:23 Antibiotics) e nitrofurantoin Allergy Verified 12/29/21 11:23 [From Macrobid] silk Allergy Verified 12/29/21 11:23 CLAMS Allergy Unknown Unknown Uncoded 12/29/21 11:23 duracef Allergy Unknown Uncoded 12/29/21 11:23 NITROFURANTOIN (Generic Allergy Y Uncoded 12/29/21 11:23 Allergy) Past Med/Surg History Medical History Back pain Disorder of right rotator cuff Diverticulosis of intestine History of anesthesia reaction "stopped breathing" Left knee DJD Metatarsalgia Myofascial pain Osteoporosis Right knee DJD Surgical History History of removal of cyst Hx of colonoscopy S/P appendectomy S/P breast biopsy S/P cataract extraction S/P D&C (status post dilation and curettage) S/P oophorectomy Family History Mother Hypertension Father Clotting disorder Hypertension Social History Smoking Status: Never smoker Second Hand Exposure: No; Hx Alcohol Use: No Hx Substance Use: No Preferred Language: Stateless Communication Ability: Effective Radio Station Operator Required: No Beliefs That Will Affect Care: None marital status: / Current Living Situation: Alone current occupational status: retired How many Children do You have: 2 Feels Safe at Home: Yes Assistive Devices: None Review of Systems A total of 10 systems reviewed and were otherwise negative All systems reviewed & are unremarkable except as noted in HPI & below Physical Exam Vital Signs Vital Signs - 24 hr 12/29/21 09:17 12/29/21 10:14 Temperature 37 C Temperature Source Temporal Artery Scan Pulse Rate 81 Pulse Rate [Right Finger] 75 Respiratory Rate 18 18 Respiratory Effort / Characteristics Non-Labored Spontaneous Respiratory Depth Normal Blood Pressure 100/64 Blood Pressure [Right Arm] 139/75 Blood Pressure Mean 76 Blood Pressure Mean [Right Arm] 96 Blood Pressure Position [Right Arm] Lying Pulse Oximetry 97 96 Oxygen Delivery Method Room Air Room Air Sepsis Recent Fever Within 48 Hours No Sepsis New/Unexplained Change in Mental Status No Sepsis Action Taken by Nursing No Action Required GENERAL: alert, well appearing, well nourished, no distress, non-toxic EYE EXAM: normal conjunctiva, PERRL and EOM's grossly intact OROPHARYNX: no exudate, no erythema, lips, buccal mucosa, and tongue normal and mucous membranes are moist NECK: supple, no nuchal rigidity, no adenopathy, non-tender LUNGS: Clear to auscultation. Normal chest wall mechanics, no w/r/r HEART: no murmurs, S1 normal and S2 normal ABDOMEN: abdomen soft, non-tender, normo-active bowel sounds, no masses, no rebound or guarding. BACK: Back is symmetrical on inspection and there is no deformity, no midline tenderness, no CVA tenderness. SKIN: no rashes and no bruising UPPER EXTREMITIES: upper extremities are grossly normal. FROM, nml pulses b/l. LOWER EXTREMITIES: No pitting edema. FROM, nml pulses b/l. NEURO EXAM: Normal sensorium, cranial nerves II-XII grossly intact, normal speech, no gross weakness of arms, no gross weakness of legs. Gross sensation intact. Course Course 1238: Discussed with gen surg. Recommend IV antibiotics and they can see in consult. 1250: Pt updated on results. Administered Medications Discontinued Medications Amlodipine Besylate (Amlodipine Besylate 5 Mg Tab) 2.5 mg PO NOW ONE Stop: 12/29/21 13:59 Last Admin: 12/29/21 14:22 Dose: 2.5 mg Documented By: PHIL Amlodipine Besylate (Amlodipine Besylate 5 Mg Tab) 2.5 mg PO QAM ONE Stop: 12/29/21 14:32 Last Admin: 12/29/21 14:49 Dose: Not Given Documented By: PHIL Apixaban (Apixaban 5 Mg Tablet) 5 mg PO BID PIERO Stop: 01/29/22 09:59 Last Admin: 12/30/21 11:33 Dose: 5 mg Documented By: BRIGIDA Atorvastatin Calcium (Atorvastatin 40 Mg Tab) 40 mg PO QPM PIERO Stop: 01/28/22 20:59 Last Admin: 12/29/21 23:32 Dose: 40 mg Documented By: DEMETRIUS Fluticasone Propionate (Fluticasone Propionate Na Spr 16 Gm Btl) 1 sprays DONALD DAILY PIERO Stop: 01/29/22 08:59 Last Admin: 12/30/21 11:33 Dose: Not Given Documented By: BRIGIDA Ciprofloxacin (Cipro / D5w) 400 mg in 200 mls @ 100 mls/hr IV NOW STA; Protocol Stop: 12/29/21 14:35 Last Infusion: 12/29/21 15:06 Dose: 0 mls/hr Documented By: Admin: 12/29/21 12:56 Dose: 100 mls/hr Documented By: PHIL Metronidazole (Flagyl) 500 mg in 100 mls @ 100 mls/hr IV NOW STA Stop: 12/29/21 13:35 Last Infusion: 12/29/21 16:13 Dose: 0 mls/hr Documented By: Admin: 12/29/21 15:08 Dose: 100 mls/hr Documented By: PHIL Ciprofloxacin (Cipro / D5w) 400 mg in 200 mls @ 100 mls/hr IV Q12 PIERO; Protocol Stop: 01/08/22 20:59 Last Infusion: 12/30/21 13:58 Dose: 0 mls/hr Documented By: Admin: 12/30/21 11:29 Dose: 100 mls/hr Documented By: Infusion: 12/29/21 23:20 Dose: 0 mls/hr Documented By: Admin: 12/29/21 21:15 Dose: 100 mls/hr Documented By: ANURADHA Metronidazole (Flagyl) 500 mg in 100 mls @ 100 mls/hr IV Q6H PIERO; Protocol Stop: 01/08/22 21:59 Last Infusion: 12/30/21 11:20 Dose: 0 mls/hr Documented By: Admin: 12/30/21 10:20 Dose: 100 mls/hr Documented By: Infusion: 12/30/21 04:35 Dose: 0 mls/hr Documented By: Admin: 12/30/21 03:31 Dose: 100 mls/hr Documented By: Infusion: 12/30/21 00:40 Dose: 0 mls/hr Documented By: Admin: 12/29/21 23:33 Dose: 100 mls/hr Documented By: DEMETRIUS Ioversol (Optiray 300 100ml) 94 ml IV ONCE ONE Stop: 12/29/21 11:24 Last Admin: 12/29/21 11:23 Dose: 94 ml Documented By: SABINE Loratadine (Loratadine 10 Mg Tab) 10 mg PO QAM [facility] Stop: 01/29/22 08:59 Last Admin: 12/30/21 12:38 Dose: 10 mg Documented By: MINNIE Miscellaneous (Alendronate Sodium 70 Mg Tab - Order Awaiting Action) 1 each N/A QS [facility] Stop: 01/28/22 15:59 Last Admin: 12/30/21 08:14 Dose: Not Given Documented By: Admin: 12/30/21 01:05 Dose: Not Given Documented By: Admin: 12/29/21 16:05 Dose: Not Given Documented By: PHIL Multivitamins/Minerals (Calcium 600mg + Vit D 400 Iu Tab) 1 tab PO BID [facility] Stop: 01/28/22 20:59 Last Admin: 12/30/21 11:33 Dose: 1 tab Documented By: Admin: 12/29/21 23:32 Dose: 1 tab Documented By: DEMETRIUS Medical Decision Making Differential Diagnosis Differential diagnoses includes but is not limited to gastritis, peptic ulcer disease, GERD, gallbladder disease, pancreatitis, small bowel obstruction, acute coronary syndrome, pericarditis, ischemic bowel, irritable bowel disease, irritable bowel syndrome, appendicitis, diverticulitis, malignancy, hernia, urinary tract infection, torsion, [/ectopic (if female)], perforation, trauma, infectious. Medical Records Attestation: I reviewed the patient's medical records. Home Medications Current Medication List: was personally reviewed by me Laboratory Data Attestation: I reviewed the patient's lab results. Result diagrams: 12/30/21 07:56 12/30/21 07:56 Lab Results 12/29/21 12/29/21 12/29/21 Range/Units 09:30 09:30 10:20 WBC 13.92 H (4.8-10.8) K/ul RBC 4.27 (3.93-5.22) M/uL Hgb 12.4 (12.0-16.0) g/dl Hct 37.7 (34.1-44.9) % MCV 88.3 (80.0-100.0) fL MCH 29.0 (25.0-34.0) pg MCHC 32.9 (32.0-36.0) g/dL RDW Std Deviation 45.9 (36.4-46.3) fL RDW Coeff of Eyal 14.2 (11.5-14.5) % Plt Count 231 (130-400) K/uL MPV 9.6 (9.4-12.3) fL Immature Gran % (Auto) 0.4 % Neut % (Auto) 76.2 % Lymph % (Auto) 15.2 % [place] % (Auto) 6.9 % Eos % (Auto) 1.2 % Baso % (Auto) 0.1 % Neut # (Auto) 10.61 H (1.4-6.5) K/uL Lymph # (Auto) 2.12 (1.2-3.4) K/uL [place] # (Auto) 0.96 H (0.24-0.82) K/uL Eos # (Auto) 0.17 (0-0.50) K/uL Baso # (Auto) 0.01 (0-0.2) K/uL Immature Gran # (Auto) 0.05 H (0.00-0.02) K/uL Sodium 136 (136-145) mmol/L Potassium 4.1 (3.5-5.1) mmol/L Chloride 106 (98-107) mmol/L Carbon Dioxide 24 (21-32) mmol/L Anion Gap 6 (3-11) BUN 13 (6-23) mg/dl Creatinine 0.82 (0.6-1.2) mg/dl Est Cr Clr Drug Dosing 39.2 ml/min Est GFR ( Amer) 74.0 ml/min Est GFR (Non-Af Amer) 63.9 ml/min BUN/Creatinine Ratio 15.9 (10-20) Glucose 128 H (70-99(Fasting)) mg/dl Lactate 0.8 (0.4-2.0) mmol/L Calcium 9.1 (8.5-10.1) mg/dl Total Bilirubin 1.0 (0.2-1.0) mg/dl AST 19 (13-39) U/L ALT 15 (7-52) U/L Alkaline Phosphatase 70 (34-104) U/L Total Protein 6.4 (6.0-8.3) gm/dl Albumin 4.0 (3.4-5.0) gm/dl Globulin 2.4 L (2.5-4.0) gm/dl Albumin/Globulin Ratio 1.7 (0.9-2) Lipase 8 L (11-82) U/L Urine Color Urine Appearance (Clear) Urine pH (4.5-7.5) Ur Specific [place] (1.000-1.030) Urine Protein (Negative) Urine Glucose (UA) (Negative) Urine Ketones (Negative) Urine Blood (Negative) Urine Nitrite (Negative) Urine Bilirubin (Negative) Urine Urobilinogen (Negative) Ur Leukocyte Esterase (Negative) Urine WBC (Auto) (0-5) /hpf Urine RBC (Auto) (0-4) /hpf U Hyaline Cast (Auto) (0-5) /lpf U Epithel Cells (Auto) (0-5) /lpf Urine Bacteria (Auto) (Negative) 12/29/21 Range/Units 11:13 WBC (4.8-10.8) K/ul RBC (3.93-5.22) M/uL Hgb (12.0-16.0) g/dl Hct (34.1-44.9) % MCV (80.0-100.0) fL MCH (25.0-34.0) pg MCHC (32.0-36.0) g/dL RDW Std Deviation (36.4-46.3) fL RDW Coeff of Eyal (11.5-14.5) % Plt Count (130-400) K/uL MPV (9.4-12.3) fL Immature Gran % (Auto) % Neut % (Auto) % Lymph % (Auto) % [place] % (Auto) % Eos % (Auto) % Baso % (Auto) % Neut # (Auto) (1.4-6.5) K/uL Lymph # (Auto) (1.2-3.4) K/uL [place] # (Auto) (0.24-0.82) K/uL Eos # (Auto) (0-0.50) K/uL Baso # (Auto) (0-0.2) K/uL Immature Gran # (Auto) (0.00-0.02) K/uL Sodium (136-145) mmol/L Potassium (3.5-5.1) mmol/L Chloride (98-107) mmol/L Carbon Dioxide (21-32) mmol/L Anion Gap (3-11) BUN (6-23) mg/dl Creatinine (0.6-1.2) mg/dl Est Cr Clr Drug Dosing ml/min Est GFR ( Amer) ml/min Est GFR (Non-Af Amer) ml/min BUN/Creatinine Ratio (10-20) Glucose (70-99(Fasting)) mg/dl Lactate (0.4-2.0) mmol/L Calcium (8.5-10.1) mg/dl Total Bilirubin (0.2-1.0) mg/dl AST (13-39) U/L ALT (7-52) U/L Alkaline Phosphatase (34-104) U/L Total Protein (6.0-8.3) gm/dl Albumin (3.4-5.0) gm/dl Globulin (2.5-4.0) gm/dl Albumin/Globulin Ratio (0.9-2) Lipase (11-82) U/L Urine Color Yellow Urine Appearance Cloudy A (Clear) Urine pH 7.5 (4.5-7.5) Ur Specific [place] 1.012 (1.000-1.030) Urine Protein Negative (Negative) Urine Glucose (UA) Negative (Negative) Urine Ketones Negative (Negative) Urine Blood Trace H (Negative) Urine Nitrite Negative (Negative) Urine Bilirubin Negative (Negative) Urine Urobilinogen Negative (Negative) Ur Leukocyte Esterase 2+ H (Negative) Urine WBC (Auto) 10-30 H (0-5) /hpf Urine RBC (Auto) 0-4 (0-4) /hpf U Hyaline Cast (Auto) 1-5 (0-5) /lpf U Epithel Cells (Auto) 10-20 H (0-5) /lpf Urine Bacteria (Auto) Negative (Negative) Imaging Data Radiologist's Impression: Abdomen/Pelvis CT 12/29/21 09:[address] WITH IV CONTRAST CT DOSE: 468.20 mGycm HISTORY: lower abd pain, hx diverticulitis TECHNIQUE: Multiaxial CT images of the abdomen and pelvis were performed following the use of intravenous contrast. A dose lowering technique was utilized adhering to the principles of ALARA. COMPARISON STUDY: Abdomen and pelvis CT 01/17/2021. FINDINGS: Mild interstitial thickening at the lung bases with a few subpleural nodular densities, unchanged. This is likely chronic. No pneumoperitoneum. No pneumatosis. Degenerative changes and levoscoliosis again noted within the lumbar spine. No suspicious lytic or blastic osseous lesions. The liver, spleen, adrenal glands, and pancreas unremarkable. Small cystic focus at the gallbladder fundus favors adenomyomatosis. No gallbladder wall thickening. No hydro nephrosis. A 6 mm hypodense lesion within the left kidney is technically too small to characterize but favors a cyst. The main portal vein is patent. Calcified plaque within the normal caliber abdominal aorta. The bladder and uterus are unremarkable. Moderate thickening within the distal sigmoid colon with pericolonic fat stranding consistent with an acute diverticulitis. No perforation identified. There may be a small intramural abscess on image 277 measuring 11 mm. No evidence for bowel obstruction. The appendix is reportedly surgically absent. IMPRESSION: 1. Acute diverticulitis involving the distal sigmoid colon. No perforation identified. There may be a small intramural abscess measuring 11 mm. 2. No evidence for bowel obstruction. 3. Prior appendectomy. 4. Additional findings as described above. ACT 112: Negative or not required by law. Electronically signed by: Refugio Ricardo M.D. 12/29/2021 11:42 AM MDM Narrative An order was placed for continuous cardiac monitoring. The monitor shows a rate of _68__ with _normal sinus__ rhythm. This is an 78-year-old female presents emergency department with concern for abdominal pain and possible recurrent diverticulitis. Patient well-appearing and was initially seen in the waiting room area as she presented on day of high volume and acuity. She was afebrile and hemodynamically stable. Labs been drawn and sent by nursing staff and were being processed at time of my evaluation. CT was added which revealed complicated diverticulitis with a small evolving intramural abscess. Case was discussed with general surgery on-call due to accompanying abscess. There is no evidence of perforation. Mild leukocytosis noted consistent with diverticulitis. I do not suspect other concurrent infectious etiology. No evidence of GI bleed. Patient given IV antibiotics while in the emergency room and after discussion with surgery and case discussed with hospitalist for additional evaluation and management. Patient well-appearing throughout. I do not suspect evolving bacteremia/sepsis. Impression & Plan Abdominal pain, Diverticulitis Discharge Plan Visit Data Chief Complaint: Abdominal Pain Stated Complaint: ABD PAIN ED Provider: Kenyatta Alicea Discharge Problem: Abdominal pain, Diverticulitis Patient Disposition: Admitted As Inpatient Condition: Good Discharge Instructions Interventions: ED Discharge Assessment Last Done: 12/29/21 22:56
[2021-12-29] MEDS ORDERED: OPTIRAY 300 100mL IV ONE (11:23)
[2021-12-29 11:29] LABS: Appearance Urine Cloudy (Clear); Bacteria Urine Automated Negative (Negative); Bilirubin Urine Negative (Negative); Blood Urine Trace (Negative); Color Urine Yellow; Glucose Urine UA Negative (Negative); Ketones Urine Negative (Negative); Leukocyte Esterase Urine 2+ (Negative); Nitrite Urine Negative (Negative); Protein Urine Negative (Negative); RBC Urine Automated 0-4 /hpf (0-4); Specific Gravity Urine 1.012 (1.000-1.030); Urobilinogen Urine Negative (Negative); pH Urine 7.5 (4.5-7.5)
--- NOTE | 2021-12-29 11:44 | CT Scan Report ---
ABDOMEN AND PELVIS CT WITH IV CONTRAST CT DOSE: 468.20 mGycm HISTORY: lower abd pain, hx diverticulitis TECHNIQUE: Multiaxial CT images of the abdomen and pelvis were performed following the use of intrave nous contrast. A dose lowering technique was utilized adhering to the principles of ALARA. COMPARISON STUDY: Abdomen and pelvis CT 01/17/2021. FINDINGS: Mild interstitial thickening at the lung bases with a few subpleural nodular densities, unc hanged. This is likely chronic. No pneumoperitoneum. No pneumatosis. Degenerative changes and levosco liosis again noted within the lumbar spine. No suspicious lytic or blastic osseous lesions. The liver , spleen, adrenal glands, and pancreas unremarkable. Small cystic focus at the gallbladder fundus fav ors adenomyomatosis. No gallbladder wall thickening. No hydronephrosis. A 6 mm hypodense lesion withi n the left kidney is technically too small to characterize but favors a cyst. The main portal vein is patent. Calcified plaque within the normal caliber abdominal aorta. The bladder and uterus are unrem arkable. Moderate thickening within the distal sigmoid colon with pericolonic fat stranding consisten t with an acute diverticulitis. No perforation identified. There may be a small intramural abscess on image 277 measuring 11 mm. No evidence for bowel obstruction. The appendix is reportedly surgically absent. IMPRESSION: 1. Acute diverticulitis involving the distal sigmoid colon. No perforation identified. There may be a small intramural abscess measuring 11 mm. 2. No evidence for bowel obstruction. 3. Prior appendectomy. 4. Additional findings as described above. ACT 112: Negative or not required by law. Electronically signed by: Refugio Ricardo M.D. 12/29/2021 11:42 AM
[2021-12-29] MEDS ORDERED: metroNIDAZOLE 500 MG/100 ML BAG IV STA (12:36)
[2021-12-29] MEDS ORDERED: CIPROFLOXACIN / D5W 400 MG/200 ML BAG IV STA (12:36)
--- NOTE | 2021-12-29 13:24 | History & Physical Report ---
Date of Service December 29, 2021 Assessment & Plan (1) Diverticulitis: Plan: Sigmoid diverticluitis without rupture and possible intramural abscess measureing 11mm - Continue Cipro 400 q12 and Flagyl 500mg q6 IV - WBC 13.9, with elevated NLR 5:1 - no organ dysfunction, lactate 0.8 - clear diet - General Surgery consultation - pain meds if needed - hold eliquis (2) CVA (cerebrovascular accident): Plan: History of Right Thalamic CVA in 2019 - Hold Eliquis - Continue statin (3) Right knee DJD: Plan: In PT/OT for knee pain echymosis likey muscle hematoma or tendon hematoma with PT therapy - joint stable, able to bear weight and full ROM (4) Osteoporosis: Plan: Continue home therapy (5) Brain aneurysm: Plan: ACOM TA- used to follow with [facility] neurology and NSGY in [facility] - no longer follows with either - last image in our system 2019 - states she was released from [facility] 04/26 - consider imaging while in patient or outpatient for following size (6) Hypertension: Plan: Fluctuating control - Norvasc 2.5mg orally - possibly increase dose pending BP trends History of Present Illness Primary Care Provider: Asad Lynch MD 86 YOF with past medical history of: CVA (Rt. 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 Paitient comes to the [facility] today for complaints of left lower quad abdominal pain that started 8/24 in the evening and progressed this morning. This was associated with feeling warm, but no fever at home and diarrhea. She reports her diarrhea as mucousy appearing and light pink, that cleared in color. Patient had this one other time and was transferred to [facility] for this but required no surgical intervention. In the [facility] the patient had CT abdomen and pelvis performed and routine labs performed to include lactate. CT abd/Pelvis was notable for diverticulitis with "possibly small abscess 11mm). General Surgery was consulted by the [facility] physicain Dr. Alicea and recommended admission to the medicine service with surgical consult. Patient was started on Ciprofloxacin and Flagyl as she has history of allergy to PCN with severe hives. Patient will be admitted to medical floor with continuing the above. Clear diet tonight. Patient with history of CVA and allergies to ASA and Plavix she is on Eliquis for secondary stroke prevention, will hold this today and follow clinically. If no worsening overnight and surgery less likely can resume. She is also currently in physical therapy for right knee pain and noticed last week she had ecchymosis at the medial aspect of her knee. She was released from NSGY at [facility] in 04/26, and does no longer follow with nuerology here, with no recent imaging of this TA. COVID test on admission is: NEGATIVE Allergies Allergy/AdvReac Type Severity Reaction Status Date / Time aspirin Allergy Unknown Unknown Verified 12/29/21 11:23 cefadroxil [From Duricef] Allergy Unknown Verified 12/29/21 11:23 erythromycin base Allergy Unknown Verified 12/29/21 11:23 Penicillins Allergy Unknown Unknown Verified 12/29/21 11:23 Sulfa (Sulfonamide Allergy Unknown Unresponsiv Verified 12/29/21 11:23 Antibiotics) e nitrofurantoin Allergy Verified 12/29/21 11:23 [From Macrobid] silk Allergy Verified 12/29/21 11:23 CLAMS Allergy Unknown Unknown Uncoded 12/29/21 11:23 duracef Allergy Unknown Uncoded 12/29/21 11:23 NITROFURANTOIN (Generic Allergy Y Uncoded 12/29/21 11:23 Allergy) Home Medications Medication Instructions Recorded Confirmed Type calcium carbonate 600 mg-vitamin 1 tab PO BID 03/27/19 12/29/21 History D3 20 mcg (800 unit) chewable tablet (Caltrate 600 plus D) loratadine 10 mg tablet 10 mg PO QAM 07/17/19 12/29/21 History atorvastatin 40 mg tablet 40 mg PO QPM #30 tabs 07/18/19 12/29/21 Rx apixaban 5 mg tablet (Eliquis) 5 mg PO BID 10/16/19 12/29/21 History fluticasone propionate 50 1 sprays intranasal DAILY 10/16/19 12/29/21 History mcg/actuation nasal spray,suspension (Allergy Relief (fluticasone)) alendronate 70 mg tablet 70 mg PO WK 11/22/20 12/29/21 History clotrimazole-betamethasone 1 1 applic topical DIRECTED PRN 11/22/20 12/29/21 History %-0.05 % topical cream lichen sclerosis famotidine 20 mg tablet 20 mg PO BID PRN Acid Reflux 11/22/20 12/29/21 History Symptoms ciprofloxacin HCl 500 mg tablet 500 mg PO Q12H 13 days #26 tabs 12/30/21 Rx (Cipro) metronidazole 500 mg tablet 500 mg PO Q8H 13 days #39 tabs 12/30/21 Rx Past Med/Surg History Medical History Back pain Disorder of right rotator cuff Diverticulosis of intestine History of anesthesia reaction "stopped breathing" Left knee DJD Metatarsalgia Myofascial pain Osteoporosis Right knee DJD Surgical History History of removal of cyst Hx of colonoscopy S/P appendectomy S/P breast biopsy S/P cataract extraction S/P D&C (status post dilation and curettage) S/P oophorectomy Family History Mother Hypertension Father Clotting disorder Hypertension Social History Smoking Status: Never smoker Second Hand Exposure: No; Hx Alcohol Use: No Hx Substance Use: No Preferred Language: Indian Communication Ability: Effective Sneller Hand Required: No Beliefs That Will Affect Care: None marital status: / Current Living Situation: Alone current occupational status: retired How many Children do You have: 2 Feels Safe at Home: Yes Assistive Devices: None Review of Systems Review of Systems: REVIEW OF SYSTEMS: Constitutional: (+) chills, no fever Eyes: No diplopia, no worsening or blurred vision ENT: normal hearing, no trouble swallowing Respiratory: No cough, sputum, dyspnea at rest or on exertion Cardiovascular: No chest pain, tightness or palpitations Abdomen: (+) pain, diarrhea, no nausea, vomiting, constipation Musculoskeletal: (+) right knee stiffness, ecchymosis, joint pain, calf pain, swelling Neurologic: No weakness, numbness/tingling, or balance problems Psychiatric: No anxiety or depression Skin: (+) patchy lightness Physical Exam Physical Exam: PHYSICAL EXAM: General: awake, alert, no apparent distress Head: Normocephalic, atraumatic ENT: PERRLA, EOMI, no pharyngeal exudate, mucous membranes moist Neuro: AAO x 3, speech clear and appropriate, strength intact bilaterally 5/5, sensation intact and equal all extremities and dermatomes, no pronator drift Chest: equal rise and fall of the chest, no accessory muscle use, no heaves or thrills, Clear to auscultation, on room air, Cardiac: Regular rate and rhythm, telemetry reviewed, skin warm dry, cap refill <3 seconds, peripheral pulses +2 no JVD, no murmur, no JVD, no edema GI: NABS x 4 quadrants, soft, tender to palpation bilateral lower quds, no rebound, guarding or tenderness : Spontaneously voiding, no pain, no CVA tenderness, Extremities: (+) right knee ehcymosis, knee with FROM, no varus valgus laxity, negative anterior/posterior drawer test Psych: Normal mood and affect Skin: vitiligo Results & Data Results & Data ([facility]) Vital Signs (Past 12 Hours) Vital Signs Temp Pulse Pulse Resp BP BP Pulse Ox 12/29/21 12:56 76 18 156/76 H 97 12/29/21 10:14 75 18 139/75 96 12/29/21 09:17 37 C 81 18 100/64 97 O2 Del Method 12/29/21 12:56 Room Air 12/29/21 10:14 Room Air 12/29/21 09:17 Room Air Laboratory Results Abnormal lab results 12/29/21 12/29/21 12/29/21 Range/Units 09:30 09:30 11:13 WBC 13.92 H (4.8-10.8) K/ul Neut # (Auto) 10.61 H (1.4-6.5) K/uL Cavalier # (Auto) 0.96 H (0.24-0.82) K/uL Immature Gran # (Auto) 0.05 H (0.00-0.02) K/uL Glucose 128 H (70-99(Fasting)) mg/dl Globulin 2.4 L (2.5-4.0) gm/dl Lipase 8 L (11-82) U/L Urine Appearance Cloudy A (Clear) Urine Blood Trace H (Negative) Ur Leukocyte Esterase 2+ H (Negative) Urine WBC (Auto) 10-30 H (0-5) /hpf U Epithel Cells (Auto) 10-20 H (0-5) /lpf Diagnostic Findings Abdomen/Pelvis CT 12/29/21 09:[address] WITH IV CONTRAST CT DOSE: 468.20 mGycm HISTORY: lower abd pain, hx diverticulitis TECHNIQUE: Multiaxial CT images of the abdomen and pelvis were performed following the use of intravenous contrast. A dose lowering technique was utilized adhering to the principles of ALARA. COMPARISON STUDY: Abdomen and pelvis CT 01/17/2021. FINDINGS: Mild interstitial thickening at the lung bases with a few subpleural nodular densities, unchanged. This is likely chronic. No pneumoperitoneum. No pneumatosis. Degenerative changes and levoscoliosis again noted within the lumbar spine. No suspicious lytic or blastic osseous lesions. The liver, spleen, adrenal glands, and pancreas unremarkable. Small cystic focus at the gallbladder fundus favors adenomyomatosis. No gallbladder wall thickening. No hydronephrosis. A 6 mm hypodense lesion within the left kidney is technically too small to characterize but favors a cyst. The main portal vein is patent. Calcified plaque within the normal caliber abdominal aorta. The bladder and u terus are unremarkable. Moderate thickening within the distal sigmoid colon with pericolonic fat stranding consistent with an acute diverticulitis. No perforation identified. There may be a small intramural abscess on image 277 measuring 11 mm. No evidence for bowel obstruction. The appendix is reportedly surgically absent. IMPRESSION: 1. Acute diverticulitis involving the distal sigmoid colon. No perforation identified. There may be a small intramural abscess measuring 11 mm. 2. No evidence for bowel obstruction. 3. Prior appendectomy. 4. Additional findings as described above. ACT 112: Negative or not required by law. Electronically signed by: Refugio Ricardo M.D. 12/29/2021 11:42 AM Medications Administered Home Medications calcium carbonate 600 mg-vitamin D3 20 mcg (800 unit) chewable tablet (Caltrate 600 plus D) 1 tab PO BID 03/27/19 [History Confirmed 12/29/21] loratadine 10 mg tablet 10 mg PO QAM 07/17/19 [History Confirmed 12/29/21] atorvastatin 40 mg tablet 40 mg PO QPM #30 tabs 07/18/19 [Rx Confirmed 12/29/21] apixaban 5 mg tablet (Eliquis) 5 mg PO BID 10/16/19 [History Confirmed 12/29/21] fluticasone propionate 50 mcg/actuation nasal spray,suspension (Allergy Relief (fluticasone)) 1 sprays intranasal DAILY 10/16/19 [History Confirmed 12/29/21] alendronate 70 mg tablet 70 mg PO WK 11/22/20 [History Confirmed 12/29/21] clotrimazole-betamethasone 1 %-0.05 % topical cream 1 applic topical DIRECTED PRN lichen sclerosis 11/22/20 [History Confirmed 12/29/21] famotidine 20 mg tablet 20 mg PO BID PRN Acid Reflux Symptoms 11/22/20 [History Confirmed 12/29/21] Active Medications Ciprofloxacin (Cipro / D5w) 400 mg in 200 mls @ 100 mls/hr IV NOW STA; Protocol Stop: 12/29/21 14:35 Last Admin: 12/29/21 12:56 Dose: 100 mls/hr ECG Additional Comments: Pending on admission Code Status & VTE Plan Code Status CODE: DNR/DNI VTE: SCDS, ambulation VTE Prophylaxis Plan VTE Prophylaxis will be ordered: Yes Supervising Physician Co-Signing Physician Notes Patient seen and examined at bedside. Obtained a physical examination and clinical history at bedside. Discussed plan of care with patient and MARCO Banks. Patient will be admitted for diverticulitus. Placed on IV antibiotics, will consult gen surgery. PG Care Time/CCT Total # of Minutes Spent Total Time Spent with Patient: Total time spent is greater than 50% in coordination of care (as documented) at patient's floor/unit and/or counseling patient: Coding Level of Care Code 04372 Initial Inpt Care Lvl 3 Diagnoses Diverticulitis K57.92 CVA (cerebrovascular accident) I63.9 CVA mechanism: unspecified Right knee DJD M17.11 Osteoporosis M81.0 Brain aneurysm I67.1 Hypertension I10 (1) CVA (cerebrovascular accident) CVA mechanism: unspecified Qualified Code(s): I63.9 - Cerebral infarction, unspecified
[2021-12-29] MEDS ORDERED: amLODIPine BESYLATE 5 MG TAB PO ONE ×2 (13:58→14:31)
[2021-12-29] MEDS ORDERED: POLYETHYLENE (MIRALAX) 17 GM PACK PO PRN (14:31)
[2021-12-29] MEDS ORDERED: ACETAMINOPHEN 325 MG TAB PO PRN (14:31)
[2021-12-29] MEDS ORDERED: FAMOTIDINE 20 MG TAB PO PRN (14:31)
--- NOTE | 2021-12-29 14:35 | Surgery Consultation ---
Date of Consultation December 29, 2021 Assessment & Plan (1) Diverticulitis: Plan 86 year-old female presented to ED with complaint of increasing left lower abdominal pain and associated diarrhea. CT scan showing sigmoid diverticulitis with intramural abscess measuring 11 mm. Episode of complicated diverticulitis with intramural abscess measuring up to 3.5 cm in November of 2020 which did not require intervention. Leukocytosis of 13k. Normal lactic acid. Abdomen is soft, tender in the suprapubic central low abdomen however no rigidity, guarding, rebound, or peritonitis. Plan: Discussed with patient that her imaging findings are consistent with complicated diverticulitis and recommendation for IV antibiotics. Okay for clear liquids but advised to go slow and stop if any increase in pain or nausea. Discussed need for total of 14 days of IV and oral antibiotics. Continue current medical management. Will continue to follow. Discussed with Dr. Browning who agrees with above. Supervising Physician Co-Signing Physician Notes I have seen and examined the patient personally and agree with the above assessment plan. In brief, she has a small 11 mm intramural abscess with diverticulitis. We will place her on IV antibiotics and clear liquid diet. We will follow closely. Conservative management for now. History of Present Illness Reason for Consultation: Acute diverticulitis with intramural abscess Requesting Physician: Jack DAN Attending Physician: Eliot Simons History of Present Illness Chayo is a very pleasant 86 year-old female who presented to ED with complaint of left lower abdominal pain that initially began on Sunday even but then progressed last evening into this morning. No associated fever, chills, nausea, or vomiting. States she has had some diarrhea with some pus in her stool. No bloody stools. Had an episode of diverticulitis with abscess last year in which she was transferred to [place] however did not require any surgical intervention and just required IV antibiotics. She had a CT scan of abdomen and pelvis with IV contrast showing sigmoid diverticulitis with possible intramural abscess measuring 11 mm. Per reviewing her records from her diverticulitis in 11/2020 she had an intramural abscess measuring 3.5 cm. She states that she is feeling better since ED evaluation. She said her pain is very minimal at this time. Pain was rating 8/10 last evening. Pain feels better with ambulating. No nausea or vomiting. Allergies Allergy/AdvReac Type Severity Reaction Status Date / Time aspirin Allergy Unknown Unknown Verified 12/29/21 11:23 cefadroxil [From Duricef] Allergy Unknown Verified 12/29/21 11:23 erythromycin base Allergy Unknown Verified 12/29/21 11:23 Penicillins Allergy Unknown Unknown Verified 12/29/21 11:23 Sulfa (Sulfonamide Allergy Unknown Unresponsiv Verified 12/29/21 11:23 Antibiotics) e nitrofurantoin Allergy Verified 12/29/21 11:23 [From Macrobid] silk Allergy Verified 12/29/21 11:23 CLAMS Allergy Unknown Unknown Uncoded 12/29/21 11:23 duracef Allergy Unknown Uncoded 12/29/21 11:23 NITROFURANTOIN (Generic Allergy Y Uncoded 12/29/21 11:23 Allergy) Home Medications Medication Instructions Recorded Confirmed Type calcium carbonate 600 mg-vitamin 1 tab PO BID 03/27/19 12/29/21 History D3 20 mcg (800 unit) chewable tablet (Caltrate 600 plus D) loratadine 10 mg tablet 10 mg PO QAM 07/17/19 12/29/21 History atorvastatin 40 mg tablet 40 mg PO QPM #30 tabs 07/18/19 12/29/21 Rx apixaban 5 mg tablet (Eliquis) 5 mg PO BID 10/16/19 12/29/21 History fluticasone propionate 50 1 sprays intranasal DAILY 10/16/19 12/29/21 History mcg/actuation nasal spray,suspension (Allergy Relief (fluticasone)) alendronate 70 mg tablet 70 mg PO WK 11/22/20 12/29/21 History clotrimazole-betamethasone 1 1 applic topical DIRECTED PRN 11/22/20 12/29/21 History %-0.05 % topical cream lichen sclerosis famotidine 20 mg tablet 20 mg PO BID PRN Acid Reflux 11/22/20 12/29/21 History Symptoms Patient History Medical History Back pain Disorder of right rotator cuff Diverticulosis of intestine History of anesthesia reaction "stopped breathing" Left knee DJD Metatarsalgia Myofascial pain Osteoporosis Right knee DJD Surgical History History of removal of cyst Hx of colonoscopy S/P appendectomy S/P breast biopsy S/P cataract extraction S/P D&C (status post dilation and curettage) S/P oophorectomy Family History Mother Hypertension Father Clotting disorder Hypertension Social History Smoking Status: Never smoker Second Hand Exposure: No; Hx Alcohol Use: No Hx Substance Use: No Preferred Language: Moroccan Communication Ability: Effective Whizzer Hand Required: No Beliefs That Will Affect Care: None marital status: / Current Living Situation: Alone current occupational status: retired How many Children do You have: 3 Feels Safe at Home: Yes Assistive Devices: None Physical Exam Constitutional: WD/WN, vitals as above cooperative and comfortable; no acute distress and not ill appearing Neck: normal visual inspection and trachea midline Respiratory: normal respiratory effort, lungs clear to auscultation Cardiovascular: RRR, no murmur, no edema Gastrointestinal (Abdomen): Inspection/Auscultation: abdomen normal to inspection and + hypoactive bowel sounds; abdomen not distended and + abnormal bowel sounds Percussion/Palpation: + abdomen tender (in the suprapubic and central lower abdomen on deep palpation) and abdomen soft; no guarding, abdomen not rigid and abdomen not firm Skin: no rashes, warm and dry Psychiatric: A+Ox3, euthymic affect Results & Data ([facility]) Vital Signs (Past 12 Hours) Vital Signs Temp Pulse Pulse Resp BP BP Pulse Ox 12/29/21 14:21 69 16 139/76 97 12/29/21 12:56 76 18 156/76 H 97 12/29/21 10:14 75 18 139/75 96 12/29/21 09:17 37 C 81 18 100/64 97 O2 Del Method 12/29/21 14:21 Room Air 12/29/21 12:56 Room Air 12/29/21 10:14 Room Air 12/29/21 09:17 Room Air Laboratory Results 12/29/21 12/29/21 12/29/21 Range/Units 13:19 11:13 10:20 WBC (4.8-10.8) K/ul RBC (3.93-5.22) M/uL Hgb (12.0-16.0) g/dl Hct (34.1-44.9) % MCV (80.0-100.0) fL MCH (25.0-34.0) pg MCHC (32.0-36.0) g/dL RDW Std Deviation (36.4-46.3) fL RDW Coeff of Eyal (11.5-14.5) % Plt Count (130-400) K/uL MPV (9.4-12.3) fL Immature Gran % (Auto) % Neut % (Auto) % Lymph % (Auto) % Glascock % (Auto) % Eos % (Auto) % Baso % (Auto) % Neut # (Auto) (1.4-6.5) K/uL Lymph # (Auto) (1.2-3.4) K/uL Glascock # (Auto) (0.24-0.82) K/uL Eos # (Auto) (0-0.50) K/uL Baso # (Auto) (0-0.2) K/uL Immature Gran # (Auto) (0.00-0.02) K/uL Sodium (136-145) mmol/L Potassium (3.5-5.1) mmol/L Chloride (98-107) mmol/L Carbon Dioxide (21-32) mmol/L Anion Gap (3-11) BUN (6-23) mg/dl Creatinine (0.6-1.2) mg/dl Est Cr Clr Drug Dosing ml/min Est GFR ( Amer) ml/min Est GFR (Non-Af Amer) ml/min BUN/Creatinine Ratio (10-20) Glucose (70-99(Fasting)) mg/dl Lactate 0.8 (0.4-2.0) mmol/L Calcium (8.5-10.1) mg/dl Total Bilirubin (0.2-1.0) mg/dl AST (13-39) U/L ALT (7-52) U/L Alkaline Phosphatase (34-104) U/L Total Protein (6.0-8.3) gm/dl Albumin (3.4-5.0) gm/dl Globulin (2.5-4.0) gm/dl Albumin/Globulin Ratio (0.9-2) Lipase (11-82) U/L Urine Color Yellow Urine Appearance Cloudy A (Clear) Urine pH 7.5 (4.5-7.5) Ur Specific Marathon 1.012 (1.000-1.030) Urine Protein Negative (Negative) Urine Glucose (UA) Negative (Negative) Urine Ketones Negative (Negative) Urine Blood Trace H (Negative) Urine Nitrite Negative (Negative) Urine Bilirubin Negative (Negative) Urine Urobilinogen Negative (Negative) Ur Leukocyte Esterase 2+ H (Negative) Urine WBC (Auto) 10-30 H (0-5) /hpf Urine RBC (Auto) 0-4 (0-4) /hpf U Hyaline Cast (Auto) 1-5 (0-5) /lpf U Epithel Cells (Auto) 10-20 H (0-5) /lpf Urine Bacteria (Auto) Negative (Negative) SARS-CoV-2, RNA, NAAT NEGATIVE (NEGATIVE) 12/29/21 12/29/21 Range/Units 09:30 09:30 WBC 13.92 H (4.8-10.8) K/ul RBC 4.27 (3.93-5.22) M/uL Hgb 12.4 (12.0-16.0) g/dl Hct 37.7 (34.1-44.9) % MCV 88.3 (80.0-100.0) fL MCH 29.0 (25.0-34.0) pg MCHC 32.9 (32.0-36.0) g/dL RDW Std Deviation 45.9 (36.4-46.3) fL RDW Coeff of Eyal 14.2 (11.5-14.5) % Plt Count 231 (130-400) K/uL MPV 9.6 (9.4-12.3) fL Immature Gran % (Auto) 0.4 % Neut % (Auto) 76.2 % Lymph % (Auto) 15.2 % Glascock % (Auto) 6.9 % Eos % (Auto) 1.2 % Baso % (Auto) 0.1 % Neut # (Auto) 10.61 H (1.4-6.5) K/uL Lymph # (Auto) 2.12 (1.2-3.4) K/uL Glascock # (Auto) 0.96 H (0.24-0.82) K/uL Eos # (Auto) 0.17 (0-0.50) K/uL Baso # (Auto) 0.01 (0-0.2) K/uL Immature Gran # (Auto) 0.05 H (0.00-0.02) K/uL Sodium 136 (136-145) mmol/L Potassium 4.1 (3.5-5.1) mmol/L Chloride 106 (98-107) mmol/L Carbon Dioxide 24 (21-32) mmol/L Anion Gap 6 (3-11) BUN 13 (6-23) mg/dl Creatinine 0.82 (0.6-1.2) mg/dl Est Cr Clr Drug Dosing 39.2 ml/min Est GFR ( Amer) 74.0 ml/min Est GFR (Non-Af Amer) 63.9 ml/min BUN/Creatinine Ratio 15.9 (10-20) Glucose 128 H (70-99(Fasting)) mg/dl Lactate (0.4-2.0) mmol/L Calcium 9.1 (8.5-10.1) mg/dl Total Bilirubin 1.0 (0.2-1.0) mg/dl AST 19 (13-39) U/L ALT 15 (7-52) U/L Alkaline Phosphatase 70 (34-104) U/L Total Protein 6.4 (6.0-8.3) gm/dl Albumin 4.0 (3.4-5.0) gm/dl Globulin 2.4 L (2.5-4.0) gm/dl Albumin/Globulin Ratio 1.7 (0.9-2) Lipase 8 L (11-82) U/L Urine Color Urine Appearance (Clear) Urine pH (4.5-7.5) Ur Specific Marathon (1.000-1.030) Urine Protein (Negative) Urine Glucose (UA) (Negative) Urine Ketones (Negative) Urine Blood (Negative) Urine Nitrite (Negative) Urine Bilirubin (Negative) Urine Urobilinogen (Negative) Ur Leukocyte Esterase (Negative) Urine WBC (Auto) (0-5) /hpf Urine RBC (Auto) (0-4) /hpf U Hyaline Cast (Auto) (0-5) /lpf U Epithel Cells (Auto) (0-5) /lpf Urine Bacteria (Auto) (Negative) SARS-CoV-2, RNA, NAAT (NEGATIVE) Diagnostic Findings ABDOMEN AND PELVIS CT WITH IV CONTRAST CT DOSE: 468.20 mGycm HISTORY: lower abd pain, hx diverticulitis TECHNIQUE: Multiaxial CT images of the abdomen and pelvis were performed following the use of intravenous contrast. A dose lowering technique was utilized adhering to the principles of ALARA. COMPARISON STUDY: Abdomen and pelvis CT 01/17/2021. FINDINGS: Mild interstitial thickening at the lung bases with a few subpleural nodular densities, unchanged. This is likely chronic. No pneumoperitoneum. No pneumatosis. Degenerative changes and levoscoliosis again noted within the lumbar spine. No suspicious lytic or blastic osseous lesions. The liver, spleen, adrenal glands, and pancreas unremarkable. Small cystic focus at the gallbladder fundus favors adenomyomatosis. No gallbladder wall thickening. No hydronephrosis. A 6 mm hypodense lesion within the left kidney is technically too small to characterize but favors a cyst. The main portal vein is patent. Calcified plaque within the normal caliber abdominal aorta. The bladder and uterus are unremarkable. Moderate thickening within the distal sigmoid colon with pericolonic fat stranding consistent with an acute diverticulitis. No perforation identified. There may be a small intramural abscess on image 277 measuring 11 mm. No evidence for bowel obstruction. The appendix is reportedly surgically absent. IMPRESSION: 1. Acute diverticulitis involving the distal sigmoid colon. No perforation identified. There may be a small intramural abscess measuring 11 mm. 2. No evidence for bowel obstruction. 3. Prior appendectomy. 4. Additional findings as described above.
--- NOTE | 2021-12-29 16:45 | Electrocardiogram Report ---
Test Reason : Blood Pressure : / mmHG Vent. Rate : 072 BPM Atrial Rate : 072 BPM P-R Int : 126 ms QRS Dur : 086 ms QT Int : 400 ms P-R-T Axes : 039 018 039 degrees QTc Int : 438 ms Normal sinus rhythm Normal ECG When compared with ECG of 17-JUL-2019 12:15, No significant change was found Confirmed by Rj Uribe ([id number]) on 12/29/2021 4:44:47 PM Referred By: REFERRED SELF Confirmed By:Rj Uribe
[2021-12-29] MEDS ORDERED: metroNIDAZOLE 500 MG/100 ML BAG IV SCH (21:00)
[2021-12-29] MEDS ORDERED: ATORVASTATIN 40 MG TAB PO SCH (21:00)
[2021-12-29] MEDS: CIPROFLOXACIN / D5W 400 MG/200 ML BAG IV SCH (21:15)
[2021-12-29] MEDS: CALCIUM 600MG + VIT D 400 IU TAB PO SCH (23:32)
[2021-12-29] MEDS: metroNIDAZOLE 500 MG/100 ML BAG IV SCH (23:33)
[2021-12-30] MEDS: metroNIDAZOLE 500 MG/100 ML BAG IV SCH ×2 (03:31→10:20)
--- NOTE | 2021-12-30 08:05 | Electrocardiogram Report ---
Test Reason : Blood Pressure : / mmHG Vent. Rate : 066 BPM Atrial Rate : 066 BPM P-R Int : 134 ms QRS Dur : 086 ms QT Int : 414 ms P-R-T Axes : 014 -03 008 degrees QTc Int : 434 ms Poor data quality, interpretation may be adversely affected Normal sinus rhythm Normal ECG When compared with ECG of 29-DEC-2021 13:55, No significant change Confirmed by Rj Uribe ([id number]) on 12/30/2021 8:04:56 AM Referred By: REFERRED SELF Confirmed By:Rj Uribe
[2021-12-30 08:29] LABS: Basophils # (auto) 0.03 K/uL (0-0.2); Basophils % (auto) 0.3 %; Eosinophils # (auto) 0.34 K/uL (0-0.50); Eosinophils % (auto) 3.6 %; Hematocrit (blood only) 35.3 % (34.1-44.9); Hemoglobin 11.6 g/dl (12.0-16.0); Immature Granulocytes # (auto) 0.04 K/uL (0.00-0.02); Immature Granulocytes % (auto) 0.4 %; Lymphocytes # (auto) 1.55 K/uL (1.2-3.4); Lymphocytes % (auto) 16.5 %; Mean Corpuscular Hemoglobin 29.3 pg (25.0-34.0); Mean Corpuscular Hgb Conc 32.9 g/dL (32.0-36.0); Mean Corpuscular Volume 89.1 fL (80.0-100.0); Mean Platelet Volume 9.4 fL (9.4-12.3); Monocytes # (auto) 0.73 K/uL (0.24-0.82); Monocytes % (auto) 7.8 %; Neutrophils # (auto) 6.71 K/uL (1.4-6.5); Neutrophils % (auto) 71.4 %; Platelet Count 205 K/uL (130-400); RDW Coefficient of Variation 13.9 % (11.5-14.5); RDW Standard Deviation 45.2 fL (36.4-46.3); Red Blood Count 3.96 M/uL (3.93-5.22)
[2021-12-30 08:51] LABS: BUN Creatinine Ratio 15.7 (10-20); Calcium 8.6 mg/dl (8.5-10.1); Creatinine Clr Calc Pharmacy 45.9 ml/min; Est GFR (African American) 89.7 ml/min; Est GFR (Non-African American) 77.4 ml/min; Magnesium 2.1 mg/dl (1.7-2.4)
[2021-12-30] MEDS ORDERED: LORATADINE 10 MG TAB PO SCH (09:00)
[2021-12-30] MEDS ORDERED: FLUTICASONE PROPIONATE NA SPR 16 GM BTL NAE SCH (09:00)
[2021-12-30] MEDS ORDERED: APIXABAN 5 MG TABLET PO SCH (10:00)
--- NOTE | 2021-12-30 10:49 | Surgery Progress Note ---
Date of Service December 30, 2021 Assessment & Plan (1) Diverticulitis: Plan 86 year-old female presented to ED with complaint of increasing left lower abdominal pain and associated diarrhea. CT scan showing sigmoid diverticulitis with intramural abscess measuring 11 mm. Episode of complicated diverticulitis with intramural abscess measuring up to 3.5 cm in November of 2020 which did not require intervention. 12/30/2021: afebrile, vss, leukocytosis resolved pain resolved no n,v Plan: Can advance diet for lunch Would recommend 24 hours of the IV antibiotics and if does well with diet advancement can possibly discharge home this evening with total course of 14 days of IV and oral antibiotics would recommend low fiber diet for 2 weeks and then slowly advance as tolerated to regular diet Dr. Browning has seen and examined pt, agrees with above. Admission and Anticipated Discharge Date Admission Date: December 29, 2021 Subjective feeling good this am no abdominal pain no n,v tolerated clear liquids no diarrhea since admission Physical Exam Constitutional: WD/WN, vitals as above no acute distress and not ill appearing Respiratory: normal respiratory effort; no respiratory distress Gastrointestinal (Abdomen): Inspection/Auscultation: abdomen normal to inspection; abdomen not distended Percussion/Palpation: abdomen soft; abdomen nontender, no guarding and abdomen not rigid Skin: no rashes, warm and dry Psychiatric: A+Ox3, euthymic affect Results & Data ([facility]) Vital Signs (Past 12 Hours) Vital Signs Temp Pulse Resp BP Pulse Ox O2 Del Method 12/30/21 08:50 36.5 C 68 16 149/75 H 98 Room Air Laboratory Results 12/30/21 12/30/21 12/29/21 Range/Units 07:56 07:56 13:19 WBC 9.40 (4.8-10.8) K/ul RBC 3.96 (3.93-5.22) M/uL Hgb 11.6 L (12.0-16.0) g/dl Hct 35.3 (34.1-44.9) % MCV 89.1 (80.0-100.0) fL MCH 29.3 (25.0-34.0) pg MCHC 32.9 (32.0-36.0) g/dL RDW Std Deviation 45.2 (36.4-46.3) fL RDW Coeff of Eyal 13.9 (11.5-14.5) % Plt Count 205 (130-400) K/uL MPV 9.4 (9.4-12.3) fL Immature Gran % (Auto) 0.4 % Neut % (Auto) 71.4 % Lymph % (Auto) 16.5 % [place] % (Auto) 7.8 % Eos % (Auto) 3.6 % Baso % (Auto) 0.3 % Neut # (Auto) 6.71 H (1.4-6.5) K/uL Lymph # (Auto) 1.55 (1.2-3.4) K/uL [place] # (Auto) 0.73 (0.24-0.82) K/uL Eos # (Auto) 0.34 (0-0.50) K/uL Baso # (Auto) 0.03 (0-0.2) K/uL Immature Gran # (Auto) 0.04 H (0.00-0.02) K/uL Sodium 137 (136-145) mmol/L Potassium 4.0 (3.5-5.1) mmol/L Chloride 109 H (98-107) mmol/L Carbon Dioxide 23 (21-32) mmol/L Anion Gap 5 (3-11) BUN 11 (6-23) mg/dl Creatinine 0.70 (0.6-1.2) mg/dl Est Cr Clr Drug Dosing 45.9 ml/min Est GFR ( Amer) 89.7 ml/min Est GFR (Non-Af Amer) 77.4 ml/min BUN/Creatinine Ratio 15.7 (10-20) Glucose 105 H (70-99(Fasting)) mg/dl Calcium 8.6 (8.5-10.1) mg/dl Magnesium 2.1 (1.7-2.4) mg/dl Urine Color Urine Appearance (Clear) Urine pH (4.5-7.5) Ur Specific [place] (1.000-1.030) Urine Protein (Negative) Urine Glucose (UA) (Negative) Urine Ketones (Negative) Urine Blood (Negative) Urine Nitrite (Negative) Urine Bilirubin (Negative) Urine Urobilinogen (Negative) Ur Leukocyte Esterase (Negative) Urine WBC (Auto) (0-5) /hpf Urine RBC (Auto) (0-4) /hpf U Hyaline Cast (Auto) (0-5) /lpf U Epithel Cells (Auto) (0-5) /lpf Urine Bacteria (Auto) (Negative) SARS-CoV-2, RNA, NAAT NEGATIVE (NEGATIVE) 12/29/21 Range/Units 11:13 WBC (4.8-10.8) K/ul RBC (3.93-5.22) M/uL Hgb (12.0-16.0) g/dl Hct (34.1-44.9) % MCV (80.0-100.0) fL MCH (25.0-34.0) pg MCHC (32.0-36.0) g/dL RDW Std Deviation (36.4-46.3) fL RDW Coeff of Eyal (11.5-14.5) % Plt Count (130-400) K/uL MPV (9.4-12.3) fL Immature Gran % (Auto) % Neut % (Auto) % Lymph % (Auto) % [place] % (Auto) % Eos % (Auto) % Baso % (Auto) % Neut # (Auto) (1.4-6.5) K/uL Lymph # (Auto) (1.2-3.4) K/uL [place] # (Auto) (0.24-0.82) K/uL Eos # (Auto) (0-0.50) K/uL Baso # (Auto) (0-0.2) K/uL Immature Gran # (Auto) (0.00-0.02) K/uL Sodium (136-145) mmol/L Potassium (3.5-5.1) mmol/L Chloride (98-107) mmol/L Carbon Dioxide (21-32) mmol/L Anion Gap (3-11) BUN (6-23) mg/dl Creatinine (0.6-1.2) mg/dl Est Cr Clr Drug Dosing ml/min Est GFR ( Amer) ml/min Est GFR (Non-Af Amer) ml/min BUN/Creatinine Ratio (10-20) Glucose (70-99(Fasting)) mg/dl Calcium (8.5-10.1) mg/dl Magnesium (1.7-2.4) mg/dl Urine Color Yellow Urine Appearance Cloudy A (Clear) Urine pH 7.5 (4.5-7.5) Ur Specific [place] 1.012 (1.000-1.030) Urine Protein Negative (Negative) Urine Glucose (UA) Negative (Negative) Urine Ketones Negative (Negative) Urine Blood Trace H (Negative) Urine Nitrite Negative (Negative) Urine Bilirubin Negative (Negative) Urine Urobilinogen Negative (Negative) Ur Leukocyte Esterase 2+ H (Negative) Urine WBC (Auto) 10-30 H (0-5) /hpf Urine RBC (Auto) 0-4 (0-4) /hpf U Hyaline Cast (Auto) 1-5 (0-5) /lpf U Epithel Cells (Auto) 10-20 H (0-5) /lpf Urine Bacteria (Auto) Negative (Negative) SARS-CoV-2, RNA, NAAT (NEGATIVE)
--- NOTE | 2021-12-30 11:17 | Electrocardiogram Report ---
Test Reason : Blood Pressure : / mmHG Vent. Rate : 066 BPM Atrial Rate : 066 BPM P-R Int : 134 ms QRS Dur : 086 ms QT Int : 414 ms P-R-T Axes : 014 -03 008 degrees QTc Int : 434 ms Poor data quality, interpretation may be adversely affected Normal sinus rhythm Normal ECG When compared with ECG of 29-DEC-2021 13:55, No significant change Confirmed by Rj Uribe ([id number]) on 12/30/2021 11:16:38 AM Referred By: REFERRED SELF Confirmed By:Rj Uribe
[2021-12-30] MEDS: CIPROFLOXACIN / D5W 400 MG/200 ML BAG IV SCH (11:29)
[2021-12-30] MEDS: CALCIUM 600MG + VIT D 400 IU TAB PO SCH (11:33)
--- NOTE | 2021-12-30 14:33 | Communication Note ---
Date of Service: December 30, 2021 By CMS guidelines, a determination that the admission or continued stay is not medically necessary has been made by a member of the UR committee and a ph ysician for this hospital stay, therefore a Code 44 will be completed and the Inpatient admission will be changed to outpatient.
--- NOTE | 2021-12-30 14:33 | Communication Note ---
Date of Service: December 30, 2021 By CMS guidelines, a determination that the admission or continued stay is not medically necessary has been made by a member of the UR committee and a phy sician for this hospital stay, therefore a Code 44 will be completed and the Inpatient admission will be changed to outpatient. Juan Jose Browning MD
--- NOTE | 2022-01-03 21:52 | Discharge Summary ---
Date of Service December 30, 2021 Admission HPI Per Admitting Provider 86 YOF with past medical history of: CVA (Rt. 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 Maria Dolores comes to the [facility] today for complaints of left lower quad abdominal pain that started 8/24 in the evening and progressed this morning. This was associated with feeling warm, but no fever at home and diarrhea. She reports her diarrhea as mucousy appearing and light pink, that cleared in color. Patient had this one other time and was transferred to [facility] for this but required no surgical intervention. In the [facility] the patient had CT abdomen and pelvis performed and routine labs performed to include lactate. CT abd/Pelvis was notable for diverticulitis with "possibly small abscess 11mm). General Surgery was consulted by the [facility] physicain Dr. Alicea and recommended admission to the medicine service with surgical consult. Patient was started on Ciprofloxacin and Flagyl as she has history of allergy to PCN with severe hives. Patient will be admitted to medical floor with continuing the above. Clear diet tonight. Patient with history of CVA and allergies to ASA and Plavix she is on Eliquis for secondary stroke prevention, will hold this today and follow clinically. If no worsening overnight and surgery less likely can resume. She is also currently in physical therapy for right knee pain and noticed last week she had ecchymosis at the medial aspect of her knee. She was released from NSGY at [facility] in 04/26, and does no longer follow with nuerology here, with no recent imaging of this TA. COVID test on admission is: NEGATIVE Principal Diagnosis Acute diverticulitis Discharge Exam General: awake, alert, no apparent distress Head: Normocephalic, atraumatic ENT: PERRLA, EOMI, no pharyngeal exudate, mucous membranes moist Neuro: AAO x 3, speech clear and appropriate, strength intact bilaterally 5/5, sensation intact and equal all extremities and dermatomes, no pronator drift Chest: equal rise and fall of the chest, no accessory muscle use, no heaves or thrills, Clear to auscultation, on room air, Cardiac: Regular rate and rhythm, telemetry reviewed, skin warm dry, cap refill <3 seconds, peripheral pulses +2 no JVD, no murmur, no JVD, no edema GI: NABS x 4 quadrants, soft, decreased tendernrdd to palpation bilateral lower quds, no rebound, guarding or tenderness : Spontaneously voiding, no pain, no CVA tenderness, Extremities: (+) right knee ehcymosis, knee with FROM, no varus valgus laxity, negative anterior/posterior drawer test Psych: Normal mood and affect Skin: vitiligo Discharge Data Allergies Allergy/AdvReac Type Severity Reaction Status Date / Time aspirin Allergy Unknown Unknown Verified 12/29/21 11:23 cefadroxil [From Duricef] Allergy Unknown Verified 12/29/21 11:23 erythromycin base Allergy Unknown Verified 12/29/21 11:23 Penicillins Allergy Unknown Unknown Verified 12/29/21 11:23 Sulfa (Sulfonamide Allergy Unknown Unresponsiv Verified 12/29/21 11:23 Antibiotics) e nitrofurantoin Allergy Verified 12/29/21 11:23 [From Macrobid] silk Allergy Verified 12/29/21 11:23 CLAMS Allergy Unknown Unknown Uncoded 12/29/21 11:23 duracef Allergy Unknown Uncoded 12/29/21 11:23 NITROFURANTOIN (Generic Allergy Y Uncoded 12/29/21 11:23 Allergy) Consultations 12/29/21 13:55 ED Decision to Admit Stat 12/29/21 14:31 Consult General Surgery Routine Ordered Studies 12/29/21 09:40 CT abd pelvis IV con only Stat Hospital Course (1) Diverticulitis: Sigmoid diverticluitis without rupture and possible intramural abscess measureing 11mm - Continue Cipro 400 q12 and Flagyl 500mg q6 IV - WBC 13.9, with elevated NLR 5:1 - no organ dysfunction, lactate 0.8 - clear diet - General Surgery consultation - pain meds if needed - hold eliquis ON day of discharge, pain improved. Patient tolerated diet. No need for surgery. will continue antibiotics as noted in the instructions. complete 2 weeks of antibiotics (2) CVA (cerebrovascular accident): History of Right Thalamic CVA in 2020 - Hold Eliquis - Continue statin (3) Right knee DJD: In PT/OT for knee pain echymosis likey muscle hematoma or tendon hematoma with PT therapy - joint stable, able to bear weight and full ROM (4) Osteoporosis: Continue home therapy (5) Brain aneurysm: ACOM TA- used to follow with [facility] neurology and NSGY in [facility] - no longer follows with either - last image in our system 2019 - states she was released from NSGY [facility] 04/26 - consider imaging while in patient or outpatient for following size (6) Hypertension: Fluctuating control - Norvasc 2.5mg orally - possibly increase dose pending BP trends Total Time Total Time Spent Total Time Spent (In Minutes): 35 Discharge Plan Discharge Items Patient Disposition: Personal Senior Care Reason For Visit: DIVERTICULITIS W/POSSIBLE ABSCESS Discharge Diagnosis: Diverticulitis Condition on Discharge: Good Activity: Resume your previous activity Non-emergency contact: Primary Care Provider Call non-emergency contact if: you have any medication questions Follow-up/Referrals: Asad Lynch MD [Physician] - Diet: Low Fiber Addtl Attending Provider Instructions: You have been hospitalized for an acute medical problem. During your stay at [facility], we have made an effort to correct the problem that brought you to the hospital while keeping you as comfortable as possible. Medications were used to bring your condition under control and your discharge instructions will include directions for any medications you should take after leaving the hospital. Please make sure you see your Primary Care Provider as part of your follow up plan. Pending Studies at Discharge: No Stand-Alone Forms: My [facility] Culture Kitchen, Smoking Cessation Skilled Items Patient informed of condition?: No DNR: No Discharge Level of Care: Skilled Communicable Disease: No Discharge Prognosis: Stable Lines: None Urinary Catheter: No Medications and DC Order Prescriptions: New metronidazole 500 mg tablet 500 mg PO Q8H 13 Days Qty: 39 0RF ciprofloxacin HCl [Cipro] 500 mg tablet 500 mg PO Q12H 13 Days Qty: 26 0RF Continued Caltrate 600 plus D 600 mg (1,500 mg)-800 unit tablet,chewable 1 tab PO BID Eliquis 5 mg tablet 5 mg PO BID fluticasone propionate [Allergy Relief (fluticasone)] 50 mcg/actuation spray,suspension 1 sprays INTNAS DAILY loratadine 10 mg Tablet 10 mg PO QAM atorvastatin 40 mg Tablet 40 mg PO QPM Qty: 30 0RF famotidine 20 mg tablet 20 mg PO BID PRN (Reason: Acid Reflux Symptoms) alendronate 70 mg tablet 70 mg PO WK clotrimazole-betamethasone 1-0.05 % cream 1 applic TOP DIRECTED PRN (Reason: lichen sclerosis) Rx Instructions: apply sparingly to affected area of vulva few days per month Discharge Orders: Discharge Order (Routine); Ordered 12/30/21 Ordered By: Eliot Camarena/Other Patient Handouts: Low-Fiber Diet Admission Data Admit Date/Time: 12/29/21 13:18 Attending Provider: Eliot Simons Admit Provider: Jack Banks Primary Care Provider: Rudy Lee Other Providers: Eliot Simons ; Jay Browning Other Interventions: Discharge Summary Assessment (RN) Last Done: 12/30/21 14:51 Coding Level of Care Code 12705 OBS Care - Discharge Diagnoses Diverticulitis K57.92 CVA (cerebrovascular accident) I63.9 CVA mechanism: unspecified Right knee DJD M17.11 Osteoporosis M81.0 Brain aneurysm I67.1 Hypertension I10 Time Spent (min) 35
== END 2021-12-30 16:00 | disposition home or self-care (01) ==
LOC: ED 09:13 → EDINP 13:18 → INTOOBSV 13:18 → 3W 22:56